=== PATIENT | male | born 1935 | race Caucasian/White ===

== ENCOUNTER 2018-02-28 14:17 | Inpatient (IN) | payer MEDICARE, BC ==
[2018-02-28] MEDS ORDERED: Sodium Chloride 0.9% 10 ML Syringe FLUSH PRN (15:06)
[2018-02-28] MEDS ORDERED: Ketorolac 30 MG/ML SDV IVPUSH ONE (15:08)
[2018-02-28] MEDS ORDERED: Prochlorperazine 10 MG/2 ML SDV IVPUSH ONE (15:08)
[2018-02-28] MEDS ORDERED: diphenhydrAMINE 50 MG/ML SDV IVPUSH ONE (15:08)
[2018-02-28] MEDS: Sodium Chloride 0.9% 1,000 ML IV SCH (15:24)
--- NOTE | 2018-02-28 19:05 | EDM.PDOC ---
ED HPI GENERAL MEDICAL PROBLEM - General Chief Complaint: Headache Stated Complaint: LOW BP/DIZZY Time Seen by Provider: 02/28/18 14:52 Source of Information: Reports: Patient, Family History Limitations: Reports: No Limitations - History of Present Illness INITIAL COMMENTS - FREE TEXT/NARRATIVE: The patient presents with a headache and dizziness. He has a history of headaches but this one is more severe. The pain is in the frontal area. He has never been worked up for the headaches. He has never been told he has migraines He denies numbness or weakness. He also has been dizzy where it is like he is lightheaded with not being off balance or having the room spinning. He has no chest pain, shortness of breath, fever, chills or cough. He has no abdominal pain, nausea or vomiting. He checked his blood pressure at home and it was 108 systolic which is low for him. Onset: Gradual Duration: Day(s): Location: Reports: Head Quality: Reports: Ache Severity: Moderate Improves with: Reports: None Worsens with: Reports: None Associated Symptoms: Reports: Headaches. Denies: Chest Pain, Cough, Fever/ Chills, Nausea/Vomiting, Shortness of Breath Frontal Headache Pain Score (Numeric/FACES): 8 - Related Data Allergies Allergy/AdvReac Type Severity Reaction Status Date / Time No Known Allergies Allergy Verified 07/01/16 13:58 Home Meds: Home Meds Acetaminophen [Tylenol Extra Strength] 1,000 mg PO Q4HR PRN 07/01/16 [History] Aspirin 81 mg PO DAILY 07/01/16 [History] Calcium Carbonate [Calcium] 500 mg PO DAILY 07/01/16 [History] Cholecalciferol (Vitamin D3) [D-2000] 1,000 unit PO DAILY 07/01/16 [History] Docusate Sodium [Colace] 100 mg PO DAILY 07/01/16 [History] Dorzolamide HCl/Timolol Maleat [Dorzolamide-Timolol Eye Drops] 1 drop OP TID [History] Furosemide 1 tab PO DAILY 07/01/16 [History] Labetalol [Normodyne] 300 mg PO BID 07/01/16 [History] Levothyroxine 75 mcg PO ACBREAKFAST 07/01/16 [History] Tamsulosin [Flomax] 0.8 mg PO DAILY 07/01/16 [History] Vitamin B Complex [B Complex] 1 each PO DAILY 07/01/16 [History] traMADol HCl [Tramadol HCl] 1 tab PO Q4H PRN 07/01/16 [History] Albuterol [Ventolin HFA] 1 puff INH Q4H PRN 02/28/18 [History] Dutasteride [Avodart] 0.5 mg PO DAILY 02/28/18 [History] Fluticasone/Vilanterol [Breo Ellipta 100-25 MCG Inhalation Kit] 1 puff IH DAILY 02/28/18 [History] Losartan [Cozaar] 100 mg PO DAILY 02/28/18 [History] Simbrinza Opth. Drops 1 drop EYELF DAILY 02/28/18 [History] Travoprost [Travatan Z] 1 drop EYELF BEDTIME 02/28/18 [History] amLODIPine Besylate [Amlodipine Besylate] 5 mg PO DAILY 02/28/18 [History] Past Medical History HEENT History: Reports: Cataract, Glaucoma, Impaired Vision, Macular Degeneration Cardiovascular History: Reports: Hypertension, Pacemaker, SOB on Exertion Respiratory History: Reports: Sleep Apnea, Other (See Below) Other Respiratory History: "lung problems" without dx. Pt is on inhalers pending pulmonology appt. Genitourinary History: Reports: Prostate Disorder, Retention, Urinary Musculoskeletal History: Reports: Back Pain, Chronic Other Musculoskeletal History: chronic hip pain Endocrine/Metabolic History: Reports: Hypothyroidism - Past Surgical History Musculoskeletal Surgical History: Reports: Hip Replacement, Other (See Below) Social & Family History - Family History Family Medical History: Noncontributory - Tobacco Use Smoking Status *Q: Former Smoker Used Tobacco, but Quit: Yes Month/Year Tobacco Last Used: 1969 - Caffeine Use Caffeine Use: Reports: Coffee - Recreational Drug Use Recreational Drug Use: No ED ROS GENERAL - Review of Systems Review Of Systems: See Below Constitutional: Reports: No Symptoms HEENT: Reports: No Symptoms Respiratory: Reports: No Symptoms Cardiovascular: Reports: Lightheadedness. Denies: Chest Pain Endocrine: Reports: No Symptoms GI/Abdominal: Reports: No Symptoms : Reports: No Symptoms Musculoskeletal: Reports: No Symptoms Skin: Reports: No Symptoms Neurological: Reports: Headache - Physical Exam Exam: See Below Exam Limited By: No Limitations General Appearance: Alert, No Apparent Distress Eye Exam: Bilateral Eye: EOMI, PERRL Ears: Normal External Exam Nose: Normal Inspection Throat/Mouth: Normal Inspection Head Exam: Atraumatic, Normocephalic Neck: Normal Inspection, Supple, Non-Tender Respiratory/Chest: No Respiratory Distress, Lungs Clear, Normal Breath Sounds Cardiovascular: Regular Rate, Rhythm, No Edema, No Murmur GI/Abdominal: Soft, Non-Tender, No Organomegaly, No Mass Rectal (Males) Exam: Heme + Stool Neuro Exam (Abbreviated): Alert, Oriented, No Motor/Sensory Deficits Back Exam: Normal Inspection Extremities: Normal Inspection EKG INTERPRETATION EKG Date: 02/28/18 Time: 15:17 Rhythm: NSR Rate (Beats/Min): 61 [place]: Normal P-Wave: Present QRS: Normal ST-T: Normal QT: Normal EKG Interpretation Comments: LVH Course - Vital Signs Last Recorded V/S: Last Vital Signs Temp 98 F 02/28/18 17:59 Pulse 81 02/28/18 17:59 Resp 18 02/28/18 17:59 BP 124/112 H 02/28/18 17:59 Pulse Ox 98 02/28/18 17:44 Orthostatic Blood Pressure [ 125/52 Standing] Orthostatic Blood Pressure [ 124/57 Sitting] Orthostatic Blood Pressure [ 141/54 Supine] - Orders/Labs/Meds Orders: Active Orders 24 hr Category Date Time Status Cardiac Monitoring [RC] . DIRECTED Care 02/28/18 15:06 Active EKG Documentation Completion [RC] STAT Care 02/28/18 15:07 Active Peripheral IV Care [RC] . DIRECTED Care 02/28/18 15:07 Active Head wo Cont [CT] Stat Exams 02/28/18 15:57 Taken RED BLOOD CELLS LP [BBK] Stat Lab 02/28/18 15:22 Results RETICULOCYTE COUNT [HEME] Stat Lab 02/28/18 17:41 Ordered TYPE AND SCREEN [BBK] Stat Lab 02/28/18 15:22 Results Sodium Chloride 0.9% [Normal Saline] 1,000 ml Med 02/28/18 15:15 Active IV ASDIRECTED Sodium Chloride 0.9% [Saline Flush] Med 02/28/18 15:06 Active 10 ml FLUSH ASDIRECTED PRN ED Antiemetic Medication Reflex [OM.PC] Stat Oth 02/28/18 15:07 Ordered Peripheral IV Insertion Adult [OM.PC] Stat [facility] 02/28/18 15:06 Ordered Transfuse RBC [Transfuse Red Blood Cells] [COMM] Stat [facility] 02/28/18 16:14 Ordered Medication Orders Sodium Chloride (Normal Saline) 1,000 mls @ 125 mls/hr IV ASDIRECTED GAURAV Last Admin: 02/28/18 15:24 Dose: 125 mls/hr Sodium Chloride (Saline Flush) 10 ml FLUSH ASDIRECTED PRN PRN Reason: Keep Vein Open Last Admin: 02/28/18 15:34 Dose: 10 ml Labs: Laboratory Tests 02/28/18 02/28/18 02/28/18 Range/Units 15:22 15:22 15:22 WBC 8.76 (4.23-9.07) K/mm3 RBC 2.66 L (4.63-6.08) M/mm3 Hgb 6.2 L* (13.7-17.5) gm/L Hct 21.1 L (40.1-51.0) % MCV 79.3 (79.0-92.2) fl MCH 23.3 L (25.7-32.2) pg MCHC 29.4 L (32.2-35.5) g/dl RDW Std Deviation 46.9 H (35.1-43.9) fL Plt Count 231 (163-337) K/mm3 MPV 9.2 L (9.4-12.3) fl Neut % (Auto) 81.1 H (34.0-67.9) % Lymph % (Auto) 9.6 L (21.8-53.1) % [place] % (Auto) 7.9 (5.3-12.2) % Eos % (Auto) 1.3 (0.8-7.0) Baso % (Auto) 0.0 L (0.1-1.2) % Neut # (Auto) 7.11 H (1.78-5.38) K/mm3 Lymph # (Auto) 0.84 L (1.32-3.57) K/mm3 [place] # (Auto) 0.69 (0.30-0.82) K/mm3 Eos # (Auto) 0.11 (0.04-0.54) K/mm3 Baso # (Auto) 0.00 L (0.01-0.08) K/mm3 Manual Slide Review Abnormal smear Sodium 140 (136-145) mEq/L Potassium 5.1 (3.5-5.1) mEq/L Chloride 108 H (98-107) mEq/L Carbon Dioxide 23 (21-32) mEq/L Anion Gap 14.1 (5-15) BUN 39 H (7-18) mg/dL Creatinine 2.0 H (0.7-1.3) mg/dL Est Cr Clr Drug Dosing 26.62 mL/min Estimated GFR (MDRD) 32 (>60) mL/min BUN/Creatinine Ratio 19.5 H (14-18) Glucose 113 (83-115) mg/dL Calcium 8.7 (8.5-10.1) mg/dL Total Bilirubin 0.4 (0.2-1.0) mg/dL AST 11 L (15-37) U/L ALT 26 (16-63) U/L Alkaline Phosphatase 62 (46-116) U/L Troponin I 0.018 (0.00-0.056) ng/mL Total Protein 6.4 (6.4-8.2) g/dl Albumin 3.3 L (3.4-5.0) g/dl Globulin 3.1 gm/dL Albumin/Globulin Ratio 1.1 (1-2) Blood Type O POSITIVE Gel Antibody Screen Negative Crossmatch See Detail Meds: Medications Generic Name Dose Route Start Last Admin Trade Name Freq PRN Reason Stop Dose Admin Sodium Chloride 1,000 mls @ 125 mls/hr 02/28/18 15:15 02/28/18 15:24 Normal Saline IV 125 mls/hr ASDIRECTED GAURAV Administration Sodium Chloride 10 ml 02/28/18 15:06 02/28/18 15:34 Saline Flush FLUSH 10 ml ASDIRECTED PRN Administration Keep Vein Open Discontinued Medications Generic Name Dose Route Start Last Admin Trade Name Freq PRN Reason Stop Dose Admin Diphenhydramine HCl 50 mg 02/28/18 15:08 02/28/18 15:25 Benadryl IVPUSH 02/28/18 15:09 50 mg ONETIME ONE Administration Ketorolac Tromethamine 30 mg 02/28/18 15:08 02/28/18 15:31 Toradol IVPUSH 02/28/18 15:09 30 mg ONETIME ONE Administration Prochlorperazine Edisylate 10 mg 02/28/18 15:08 02/28/18 15:29 Compazine IVPUSH 02/28/18 15:09 10 mg ONETIME ONE Administration - Re-Assessments/Exams Free Text/Narrative Re-Assessment/Exam: 02/28/18 19:05 I ordered an IV NS at 125mL/hr, compazine 10mg IV, toradol 30mg IV, benadryl IV. I also ordered a CT of his head, EKG, and labs. His EKG shows a NSR with no acute changes. His CT shows nothing acute. 02/28/18 19:07 His Hgb was very low at 6.2. The last time he was here in 2016 his Hgb was 12. He denies any blood stool or dark tarry stool. I did a rectal exam and the guiac was positive. I ordered 2 units of PRBCs. His creatinine is 2. His troponin is negative. I feel he needs to be admitted. I called Dr Boland and she agreed to the admission. Departure - Departure Time of Disposition: 19:10 Disposition: Refer to Observation Condition: Good Clinical Impression: Renal insufficiency, Lightheaded Headache Qualifiers: Headache type: unspecified Headache chronicity pattern: chronic headache Intractability: not intractable Qualified Code(s): R51 - Headache GI bleed Qualifiers: GI bleed type/associated pathology: unspecified gastrointestinal hemorrhage type Qualified Code(s): K92.2 - Gastrointestinal hemorrhage, unspecified Anemia Qualifiers: Anemia type: other cause Other causes of anemia: other cause, not classified Qualified Code(s): D64.89 - Other specified anemias - Discharge Information Referrals: Theodore Lopez MD [Primary Care Provider] - - My Orders Last 24 Hours: My Active Orders 02/28/18 15:06 Cardiac Monitoring [RC] . DIRECTED Sodium Chloride 0.9% [Saline Flush] 10 ml FLUSH ASDIRECTED PRN Peripheral IV Insertion Adult [OM.PC] Stat 02/28/18 15:07 EKG Documentation Completion [RC] STAT Peripheral IV Care [RC] . DIRECTED ED Antiemetic Medication Reflex [OM.PC] Stat 02/28/18 15:15 Sodium Chloride 0.9% [Normal Saline] 1,000 ml IV ASDIRECTED 02/28/18 15:22 RED BLOOD CELLS LP [BBK] Stat TYPE AND SCREEN [BBK] Stat 02/28/18 15:57 Head wo Cont [CT] Stat 02/28/18 16:14 Transfuse RBC [Transfuse Red Blood Cells] [COMM] Stat 02/28/18 17:41 RETICULOCYTE COUNT [HEME] Stat - Assessment/Plan Last 24 Hours: My Active Orders 02/28/18 15:06 Cardiac Monitoring [RC] . DIRECTED Sodium Chloride 0.9% [Saline Flush] 10 ml FLUSH ASDIRECTED PRN Peripheral IV Insertion Adult [OM.PC] Stat 02/28/18 15:07 EKG Documentation Completion [RC] STAT Peripheral IV Care [RC] . DIRECTED ED Antiemetic Medication Reflex [OM.PC] Stat 02/28/18 15:15 Sodium Chloride 0.9% [Normal Saline] 1,000 ml IV ASDIRECTED 02/28/18 15:22 RED BLOOD CELLS LP [BBK] Stat TYPE AND SCREEN [BBK] Stat 02/28/18 15:57 Head wo Cont [CT] Stat 02/28/18 16:14 Transfuse RBC [Transfuse Red Blood Cells] [COMM] Stat 02/28/18 17:41 RETICULOCYTE COUNT [HEME] Stat
--- NOTE | 2018-02-28 20:23 | PCM.HP ---
H&P History of Present Illness - General Date of Service: 02/28/18 Admit Problem/Dx: Admission Diagnosis/Problem Admission Diagnosis/Problem Anemia Source of Information: Family, Provider History Limitations: Reports: No Limitations - History of Present Illness Initial Comments - Free Text/Narative: 82 year old male with PMH of hypertension reported a complaint of a headache. He was treated with Toradol, Benadryl, and Compazine for his headache. A Ct of the head was performed and was unremarkable. In the process of evaluation for associated dizziness, the patient was found to have a Hgb of 6.2. He has had at least 2 colonoscopies in the past for reportedly colon cancer screening. The patient's sister of colon cancer. A comparison of available lab work from 2016, documented a baseline Hgb 12.0. He has been typed and screened, and will start his first unit of PRBCs ordered in the ED. He will be admitted to obs with telemetry. The patient denied unsteady gait, presyncopal/syncopal episodes, CP but complains of SOB. he is expected to have a pulmonary consult in 6-8 weeks; the family stated that he has had PFTs in the past. The results are unknown at the time of admission. Onset of Symptoms: Reports: Gradual, Unknown/Unsure Duration of Symptoms: Reports: Week(s):, Getting Worse Location: Reports: Head, Generalized Severity: Moderate Improves with: Reports: Other (blood transfusion) Worsens with: Reports: None Associated Symptoms: Reports: Headaches, Weakness Frontal Headache Pain Score (Numeric/FACES): 8 - Related Data Allergies/Adverse Reactions: Allergies Allergy/AdvReac Type Severity Reaction Status Date / Time No Known Allergies Allergy Verified 02/28/18 22:30 Home Medications: Home Meds Acetaminophen [Tylenol Extra Strength] 1,000 mg PO Q4HR PRN 07/01/16 [History] Aspirin 81 mg PO DAILY 07/01/16 [History] Calcium Carbonate [Calcium] 500 mg PO DAILY 07/01/16 [History] Cholecalciferol (Vitamin D3) [D3-2000] 1,000 unit PO DAILY 07/01/16 [History] Dorzolamide HCl/Timolol Maleat [Dorzolamide-Timolol Eye Drops] 1 drop OP QAM [History] Furosemide 20 tab PO DAILY 07/01/16 [History] Labetalol [Normodyne] 300 mg PO BID 07/01/16 [History] Levothyroxine 75 mcg PO ACBREAKFAST 07/01/16 [History] Tamsulosin [Flomax] 0.8 mg PO DAILY 07/01/16 [History] Vitamin B Complex [B Complex] 1 tab PO DAILY 07/01/16 [History] traMADol HCl [Tramadol HCl] 50 mg PO Q4H PRN 07/01/16 [History] Albuterol [Ventolin HFA] 1 puff INH Q4H PRN 02/28/18 [History] Dutasteride [Avodart] 0.5 mg PO DAILY 02/28/18 [History] Fluticasone/Vilanterol [Breo Ellipta 100-25 MCG Inhalation Kit] 1 puff IH DAILY 02/28/18 [History] Losartan [Cozaar] 100 mg PO DAILY 02/28/18 [History] Simbrinza Opth. Drops 1 drop EYELF DAILY 02/28/18 [History] Travoprost [Travatan Z] 1 drop EYELF BEDTIME 02/28/18 [History] amLODIPine Besylate [Amlodipine Besylate] 5 mg PO DAILY 02/28/18 [History] Past Medical History HEENT History: Reports: Cataract, Glaucoma, Impaired Vision, Macular Degeneration Cardiovascular History: Reports: Hypertension, Pacemaker, SOB on Exertion Respiratory History: Reports: Sleep Apnea, Other (See Below) Other Respiratory History: "lung problems" without dx. Pt is on inhalers pending pulmonology appt. Genitourinary History: Reports: Prostate Disorder, Retention, Urinary Musculoskeletal History: Reports: Back Pain, Chronic Other Musculoskeletal History: chronic hip pain Endocrine/Metabolic History: Reports: Hypothyroidism - Past Surgical History Musculoskeletal Surgical History: Reports: Hip Replacement, Other (See Below) Social & Family History - Family History Family Medical History: Noncontributory - Tobacco Use Smoking Status *Q: Former Smoker Used Tobacco, but Quit: Yes Month/Year Tobacco Last Used: 1969 - Caffeine Use Caffeine Use: Reports: Coffee - Recreational Drug Use Recreational Drug Use: No H&P Review of Systems - Review of Systems: Review Of Systems: See Below General: Reports: Weakness HEENT: Reports: Headaches Pulmonary: Reports: Shortness of Breath Cardiovascular: Reports: Lightheadedness Gastrointestinal: Reports: No Symptoms Genitourinary: Reports: No Symptoms Musculoskeletal: Reports: No Symptoms Skin: Reports: No Symptoms Psychiatric: Reports: No Symptoms Neurological: Reports: No Symptoms Hematologic/Lymphatic: Reports: No Symptoms Immunologic: Reports: No Symptoms Exam - Exam Exam: See Below - Vital Signs Vital Signs: Last Vital Signs Temp 36.6 C 02/28/18 17:59 Pulse 81 02/28/18 17:59 Resp 18 02/28/18 17:59 BP 124/112 H 02/28/18 17:59 Pulse Ox 98 02/28/18 17:44 Orthostatic Blood Pressure [ 125/52 Standing] Orthostatic Blood Pressure [ 124/57 Sitting] Orthostatic Blood Pressure [ 141/54 Supine] Weight: 123.559 kg - Exam Quality Assessment: Supplemental Oxygen, DVT Prophylaxis General: Alert, Oriented, Cooperative HEENT: Conjunctiva Clear, Nares Patent, Normal Nasal Septum, Pupils Equal, Pupils Reactive, PERRLA Neck: Trachea Midline Lungs: Normal Respiratory Effort Cardiovascular: Regular Rate, Regular Rhythm GI/Abdominal Exam: Normal Bowel Sounds, Soft, Non-Tender, No Organomegaly, No Distention (Male) Exam: Deferred Rectal (Males) Exam: Deferred Extremities: Normal Inspection, Non-Tender, Slow Capillary Refill Skin: Warm Neurological: Cranial Nerves Intact Neuro Extensive - Mental Status: Alert, Oriented x3 - Patient Data Lab Results Last 24 hrs: Laboratory Results - last 24 hr 02/28/18 02/28/18 02/28/18 Range/Units 15:22 15:22 15:22 WBC 8.76 (4.23-9.07) K/mm3 RBC 2.66 L (4.63-6.08) M/mm3 Hgb 6.2 L* (13.7-17.5) gm/L Hct 21.1 L (40.1-51.0) % MCV 79.3 (79.0-92.2) fl MCH 23.3 L (25.7-32.2) pg MCHC 29.4 L (32.2-35.5) g/dl RDW Std Deviation 46.9 H (35.1-43.9) fL Plt Count 231 (163-337) K/mm3 MPV 9.2 L (9.4-12.3) fl Neut % (Auto) 81.1 H (34.0-67.9) % Lymph % (Auto) 9.6 L (21.8-53.1) % [place] % (Auto) 7.9 (5.3-12.2) % Eos % (Auto) 1.3 (0.8-7.0) Baso % (Auto) 0.0 L (0.1-1.2) % Neut # (Auto) 7.11 H (1.78-5.38) K/mm3 Lymph # (Auto) 0.84 L (1.32-3.57) K/mm3 [place] # (Auto) 0.69 (0.30-0.82) K/mm3 Eos # (Auto) 0.11 (0.04-0.54) K/mm3 Baso # (Auto) 0.00 L (0.01-0.08) K/mm3 Manual Slide Review Abnormal smear Sodium 140 (136-145) mEq/L Potassium 5.1 (3.5-5.1) mEq/L Chloride 108 H (98-107) mEq/L Carbon Dioxide 23 (21-32) mEq/L Anion Gap 14.1 (5-15) BUN 39 H (7-18) mg/dL Creatinine 2.0 H (0.7-1.3) mg/dL Est Cr Clr Drug Dosing 26.62 mL/min Estimated GFR (MDRD) 32 (>60) mL/min BUN/Creatinine Ratio 19.5 H (14-18) Glucose 113 (83-115) mg/dL Calcium 8.7 (8.5-10.1) mg/dL Total Bilirubin 0.4 (0.2-1.0) mg/dL AST 11 L (15-37) U/L ALT 26 (16-63) U/L Alkaline Phosphatase 62 (46-116) U/L Troponin I 0.018 (0.00-0.056) ng/mL Total Protein 6.4 (6.4-8.2) g/dl Albumin 3.3 L (3.4-5.0) g/dl Globulin 3.1 gm/dL Albumin/Globulin Ratio 1.1 (1-2) Blood Type O POSITIVE Gel Antibody Screen Negative Crossmatch See Detail Result Diagrams: 03/02/18 05:32 03/02/18 05:32 - Problem List (1) Anemia SNOMED Code(s): 160483276 ICD Code: D64.9 - ANEMIA, UNSPECIFIED Status: Acute Qualifiers: Anemia type: other cause Other causes of anemia: other cause, not classified Qualified Code(s): D64.89 - Other specified anemias (2) GI bleed SNOMED Code(s): 93902017 ICD Code: K92.2 - GASTROINTESTINAL HEMORRHAGE, UNSPECIFIED Status: Acute Qualifiers: GI bleed type/associated pathology: unspecified gastrointestinal hemorrhage type Qualified Code(s): K92.2 - Gastrointestinal hemorrhage, unspecified (3) Headache SNOMED Code(s): 11179792 ICD Code: R51 - HEADACHE Status: Acute Qualifiers: Headache type: unspecified Headache chronicity pattern: chronic headache Intractability: not intractable Qualified Code(s): R51 - Headache (4) Hypertension SNOMED Code(s): 75143900 ICD Code: I10 - ESSENTIAL (PRIMARY) HYPERTENSION Status: Acute Qualifiers: Hypertension type: unspecified secondary hypertension Qualified Code(s): I15.9 - Secondary hypertension, unspecified; I15 - Secondary hypertension (5) Lightheaded SNOMED Code(s): 593137005 ICD Code: R42 - DIZZINESS AND GIDDINESS Status: Acute (6) Renal insufficiency SNOMED Code(s): 391511251, 736557478 ICD Code: N28.9 - DISORDER OF KIDNEY AND URETER, UNSPECIFIED Status: Acute (7) Shortness of breath SNOMED Code(s): 867009863 ICD Code: R06.02 - SHORTNESS OF BREATH Status: Acute (8) Glaucoma SNOMED Code(s): 36140555 ICD Code: H40.9 - UNSPECIFIED GLAUCOMA Status: Acute (9) Hypothyroidism SNOMED Code(s): 70074046 ICD Code: E03.9 - HYPOTHYROIDISM, UNSPECIFIED Status: Acute Problem List Initiated/Reviewed/Updated: Yes Orders Last 24hrs: Active Orders 24 hr Category Date Time Status Admission Status [Patient Status] [ADT] Routine ADT 02/28/18 19:19 Active Cardiac Monitoring [RC] . DIRECTED Care 02/28/18 19:19 Active EKG Documentation Completion [RC] STAT Care 02/28/18 15:07 Active Head wo Cont [CT] Stat Exams 02/28/18 15:57 Taken RED BLOOD CELLS LP [BBK] Stat Lab 02/28/18 15:22 Results RETICULOCYTE COUNT [HEME] Stat Lab 02/28/18 17:41 Ordered TYPE AND SCREEN [BBK] Stat Lab 02/28/18 15:22 Results Sodium Chloride 0.9% [Normal Saline] 1,000 ml Med 02/28/18 15:15 Active IV ASDIRECTED Sodium Chloride 0.9% [Saline Flush] Med 02/28/18 15:06 Active 10 ml FLUSH ASDIRECTED PRN ED Antiemetic Medication Reflex [OM.PC] Stat Ot 02/28/18 15:07 Ordered Peripheral IV Insertion Adult [OM.PC] Stat Ot 02/28/18 15:06 Ordered Transfuse RBC [Transfuse Red Blood Cells] [COMM] Stat Ot 02/28/18 16:14 Ordered Medication Orders Sodium Chloride (Normal Saline) 1,000 mls @ 125 mls/hr IV ASDIRECTED GAURAV Last Admin: 02/28/18 15:24 Dose: 125 mls/hr Sodium Chloride (Saline Flush) 10 ml FLUSH ASDIRECTED PRN PRN Reason: Keep Vein Open Last Admin: 02/28/18 15:34 Dose: 10 ml Assessment/Plan Comment:: Impression: GOODE--resolved; negative CT of head Lightheaded with anemia, PRBCs ordered; guiac positive stool denies change in stool; negative orthostatics Family Hx of Colon Ca, remote history of colonoscopy HTN HLD/Hypothyroid S/P PPM-->query SSN/A Fib Hx of Glaucoma Plan: Obs with telemetry 2 units PRBCs, diurese Home meds/Correct electrolytes; daily labs Clear Liquid diet advance as tolerated Gen Surg as needed, anticipate colonsocopy as an outpatient--discussed with family GI/DVT prophylaxis
[2018-02-28] MEDS ORDERED: Furosemide 40 MG/4 ML VIAL IVPUSH ONE (20:29)
[2018-02-28] MEDS ORDERED: Acetaminophen 325 MG Tab PO PRN (20:36)
[2018-02-28] MEDS: Famotidine 20 MG/2 ML SDV IVPUSH SCH (20:48)
[2018-02-28] MEDS ORDERED: DORZOLAMIDE HCL OP SCH (21:00)
[2018-02-28] MEDS ORDERED: TIMOLOL MALEAT OP SCH (21:00)
[2018-02-28] MEDS: LABETALOL 300 MG PO SCH (22:23)
[2018-02-28] MEDS ORDERED: Pneumococcal Polyvalent-23 Vaccine 0.5 ML SDV IM ONE (23:44)
[2018-03-01] MEDS: Famotidine 20 MG/2 ML SDV IVPUSH SCH ×2 (08:21→20:07)
[2018-03-01] MEDS: Cholecalciferol (Vitamin D3) 1,000 Unit Tab PO SCH (08:21)
[2018-03-01] MEDS: TIMOLOL MALEAT OP SCH (08:24)
[2018-03-01] MEDS: DORZOLAMIDE HCL OP SCH (08:24)
[2018-03-01] MEDS: LABETALOL 300 MG PO SCH ×2 (08:27→20:07)
[2018-03-01] MEDS: Sodium Chloride 0.9% 1,000 ML IV SCH (08:45)
--- NOTE | 2018-03-01 09:55 | PCM.PN ---
- General Info Date of Service: 03/01/18 Subjective Update: No eileen blood during the night or transfusion reaction, however was confused during the evening. Discussed with patient and the additional benefit of more blood, will give an additional 2 units of PRBCs followed by Jude; patient and are agreeable. Again reinforced the need to get evaluated as an outpatient for GI bleed/colon CA screen. Functional Status: Reports: Tolerating Diet, Ambulating, Urinating (refused to use urinal) - Review of Systems General: Reports: Weakness HEENT: Reports: No Symptoms Pulmonary: Reports: Shortness of Breath (Pulse ox-->99%) Cardiovascular: Reports: Lightheadedness Gastrointestinal: Reports: No Symptoms Genitourinary: Reports: No Symptoms Musculoskeletal: Reports: No Symptoms Skin: Reports: No Symptoms Neurological: Reports: No Symptoms Psychiatric: Reports: No Symptoms - Patient Data Vitals - Most Recent: Last Vital Signs Temp 36.4 C 03/01/18 08:14 Pulse 66 03/01/18 08:14 Resp 20 03/01/18 08:14 BP 131/65 03/01/18 08:14 Pulse Ox 98 03/01/18 08:14 Orthostatic Blood Pressure [ 125/52 Standing] Orthostatic Blood Pressure [ 124/57 Sitting] Orthostatic Blood Pressure [ 141/54 Supine] Weight - Most Recent: 76.43 kg I&O - Last 24 Hours: Intake & Output 02/28/18 03/01/18 03/01/18 22:59 06:59 14:59 Intake Total 360 1447 Output Total 1425 Balance 360 22 Lab Results Last 24 Hours: Laboratory Results - last 24 hr 02/28/18 02/28/18 02/28/18 Range/Units 15:22 15:22 15:22 WBC 8.76 (4.23-9.07) K/mm3 RBC 2.66 L (4.63-6.08) M/mm3 Hgb 6.2 L* (13.7-17.5) gm/L Hct 21.1 L (40.1-51.0) % MCV 79.3 (79.0-92.2) fl MCH 23.3 L (25.7-32.2) pg MCHC 29.4 L (32.2-35.5) g/dl RDW Std Deviation 46.9 H (35.1-43.9) fL Plt Count 231 (163-337) K/mm3 MPV 9.2 L (9.4-12.3) fl Neut % (Auto) 81.1 H (34.0-67.9) % Lymph % (Auto) 9.6 L (21.8-53.1) % [place] % (Auto) 7.9 (5.3-12.2) % Eos % (Auto) 1.3 (0.8-7.0) Baso % (Auto) 0.0 L (0.1-1.2) % Neut # (Auto) 7.11 H (1.78-5.38) K/mm3 Lymph # (Auto) 0.84 L (1.32-3.57) K/mm3 [place] # (Auto) 0.69 (0.30-0.82) K/mm3 Eos # (Auto) 0.11 (0.04-0.54) K/mm3 Baso # (Auto) 0.00 L (0.01-0.08) K/mm3 Manual Slide Review Abnormal smear Percent Retic (0.51-1.81) % Sodium 140 (136-145) mEq/L Potassium 5.1 (3.5-5.1) mEq/L Chloride 108 H (98-107) mEq/L Carbon Dioxide 23 (21-32) mEq/L Anion Gap 14.1 (5-15) BUN 39 H (7-18) mg/dL Creatinine 2.0 H (0.7-1.3) mg/dL Est Cr Clr Drug Dosing 26.62 mL/min Estimated GFR (MDRD) 32 (>60) mL/min BUN/Creatinine Ratio 19.5 H (14-18) Glucose 113 (83-115) mg/dL Calcium 8.7 (8.5-10.1) mg/dL Magnesium (1.8-2.4) mg/dl Total Bilirubin 0.4 (0.2-1.0) mg/dL AST 11 L (15-37) U/L ALT 26 (16-63) U/L Alkaline Phosphatase 62 (46-116) U/L Troponin I 0.018 (0.00-0.056) ng/mL Total Protein 6.4 (6.4-8.2) g/dl Albumin 3.3 L (3.4-5.0) g/dl Globulin 3.1 gm/dL Albumin/Globulin Ratio 1.1 (1-2) Blood Type O POSITIVE Gel Antibody Screen Negative Crossmatch See Detail 02/28/18 03/01/18 03/01/18 Range/Units 21:27 05:09 05:09 WBC (4.23-9.07) K/mm3 RBC (4.63-6.08) M/mm3 Hgb 8.5 L (13.7-17.5) gm/L Hct (40.1-51.0) % MCV (79.0-92.2) fl MCH (25.7-32.2) pg MCHC (32.2-35.5) g/dl RDW Std Deviation (35.1-43.9) fL Plt Count (163-337) K/mm3 MPV (9.4-12.3) fl Neut % (Auto) (34.0-67.9) % Lymph % (Auto) (21.8-53.1) % [place] % (Auto) (5.3-12.2) % Eos % (Auto) (0.8-7.0) Baso % (Auto) (0.1-1.2) % Neut # (Auto) (1.78-5.38) K/mm3 Lymph # (Auto) (1.32-3.57) K/mm3 [place] # (Auto) (0.30-0.82) K/mm3 Eos # (Auto) (0.04-0.54) K/mm3 Baso # (Auto) (0.01-0.08) K/mm3 Manual Slide Review Percent Retic 1.84 H (0.51-1.81) % Sodium 140 (136-145) mEq/L Potassium 4.7 (3.5-5.1) mEq/L Chloride 108 H (98-107) mEq/L Carbon Dioxide 22 (21-32) mEq/L Anion Gap 14.7 (5-15) BUN 36 H (7-18) mg/dL Creatinine 2.0 H (0.7-1.3) mg/dL Est Cr Clr Drug Dosing 26.62 mL/min Estimated GFR (MDRD) 32 (>60) mL/min BUN/Creatinine Ratio 18.0 (14-18) Glucose 117 H (83-115) mg/dL Calcium 8.4 L (8.5-10.1) mg/dL Magnesium 2.4 (1.8-2.4) mg/dl Total Bilirubin (0.2-1.0) mg/dL AST (15-37) U/L ALT (16-63) U/L Alkaline Phosphatase (46-116) U/L Troponin I (0.00-0.056) ng/mL Total Protein (6.4-8.2) g/dl Albumin (3.4-5.0) g/dl Globulin gm/dL Albumin/Globulin Ratio (1-2) Blood Type Gel Antibody Screen Crossmatch Med Orders - Current: Current Medications Acetaminophen (Tylenol) 975 mg PO Q4H PRN PRN Reason: Pain Cholecalciferol (Vitamin D3) 1,000 units PO DAILY [facility] Last Admin: 03/01/18 08:21 Dose: 1,000 units Famotidine (Pepcid) 20 mg IVPUSH BID [facility] Last Admin: 03/01/18 08:21 Dose: 20 mg Furosemide (Lasix) 40 mg IVPUSH NOW ONE Stop: 03/01/18 13:01 Sodium Chloride (Normal Saline) 1,000 mls @ 125 mls/hr IV ASDIRECTED [facility] Last Admin: 03/01/18 08:45 Dose: 125 mls/hr (Albuterol 1 Puff) (*Own Med) 1 puff INH Q4H PRN PRN Reason: Shortness of Breath (Fluticasone/Vilanterol 1 Puff) *Own Med 1 puff IH DAILY [facility] (Labetalol [ Normodyne] 300 Mg) *Own Med 300 mg PO BID [facility] Last Admin: 03/01/18 08:27 Dose: Not Given (Levothyroxine [ Levothyroxine] 75 Mcg)Own Med 75 mcg PO ACBREAKFAST [facility] Last Admin: 03/01/18 06:49 Dose: 75 mcg (Losartan [Cozaar] (100 Mg)Own Med) 100 mg PO DAILY [facility] Last Admin: 03/01/18 08:26 Dose: Not Given (Tramadol Hcl [ Tramadol Hcl] 1 Tab) Own Med 1 tab PO Q4H PRN PRN Reason: Pain (Travoprost [ Travatan Z] 1 Drop)* Own Med 1 drop EYELF BEDTIME [facility] Last Admin: 02/28/18 22:23 Dose: 1 drop (Amlodipine Besylate [Amlodipine Besylate] 5 Mg) Own Med 5 mg PO BEDTIME [facility] Dorzolamide Hcl/Timolol Maleat [ Dorzolamide-Timolol Eye Own Med 1 drop OP DAILY [facility] Last Admin: 03/01/18 08:24 Dose: 1 drop (Dutasteride 0.5 Mg) (Own Med) 0.5 mg PO BEDTIME [facility] (Tamsulosin [Flomax] 0.4 Mg)Own Med * 0.8 mg PO BEDTIME [facility] Simbrinza Opth. (Drops) 0 each EYELF DAILY [facility] Sodium Chloride (Saline Flush) 10 ml FLUSH ASDIRECTED PRN PRN Reason: Keep Vein Open Last Admin: 02/28/18 15:34 Dose: 10 ml Discontinued Medications Diphenhydramine HCl (Benadryl) 50 mg IVPUSH ONETIME ONE Stop: 02/28/18 15:09 Last Admin: 02/28/18 15:25 Dose: 50 mg Furosemide (Lasix) 40 mg IVPUSH NOW ONE Stop: 02/28/18 20:30 Last Admin: 02/28/18 20:48 Dose: 40 mg Ketorolac Tromethamine (Toradol) 30 mg IVPUSH ONETIME ONE Stop: 02/28/18 15:09 Last Admin: 02/28/18 15:31 Dose: 30 mg (Amlodipine Besylate [Amlodipine Besylate] 5 Mg) Own Med 5 mg PO DAILY [facility] Dorzolamide Hcl/Timolol Maleat [ Dorzolamide-Timolol Eye Own Med 1 drop OP TID [facility] Last Admin: 02/28/18 22:24 Dose: Not Given (Dutasteride 0.5 Mg) (Own Med) 0.5 mg PO DAILY [facility] (Tamsulosin [Flomax] 0.4 Mg)Own Med * 0.8 mg PO DAILY [facility] Pneumococcal Polyvalent Vaccine (Pneumovax 23) 0.5 ml IM .ONCE ONE Stop: 02/28/18 23:45 Prochlorperazine Edisylate (Compazine) 10 mg IVPUSH ONETIME ONE Stop: 02/28/18 15:09 Last Admin: 02/28/18 15:29 Dose: 10 mg - Exam Quality Assessment: DVT Prophylaxis General: Alert, Oriented, Cooperative, No Acute Distress HEENT: Pupils Equal, Pupils Reactive, EOMI Neck: Trachea Midline, No JVD Lungs: Normal Respiratory Effort Cardiovascular: Regular Rate, Regular Rhythm GI/Abdominal Exam: Normal Bowel Sounds, Soft, Non-Tender, No Organomegaly, No Distention (Male) Exam: Deferred Back Exam: Normal Inspection Extremities: Normal Inspection, Non-Tender, Normal Capillary Refill Neurological: No New Focal Deficit Psy/Mental Status: Alert, Normal Affect, Normal Mood - Problem List Review Problem List Initiated/Reviewed/Updated: Yes - My Orders Last 24 Hours: My Active Orders 02/28/18 20:24 Albuterol 1 puff INH Q4H PRN traMADol HCl [Tramadol HCl] 1 tab PO Q4H PRN 02/28/18 20:27 Activity as Tolerated [RC] .Routine 02/28/18 20:31 Code Status [Resuscitation Status] Routine 02/28/18 20:36 Acetaminophen [Tylenol] 975 mg PO Q4H PRN 02/28/18 21:00 Famotidine [Pepcid] 20 mg IVPUSH BID Labetalol [Normodyne] 300 mg PO BID Travoprost [Travatan Z] 1 drop EYELF BEDTIME 02/28/18 Dinner Full Liquid Diet [DIET] 03/01/18 01:42 Patient Status [ADT] Routine 03/01/18 06:00 Levothyroxine [Levothyroxine] 75 mcg PO ACBREAKFAST 03/01/18 09:00 Cholecalciferol (Vitamin D3) [Vitamin D3] 1,000 units PO DAILY Dorzolamide Hcl/Timolol Maleat [Dorzolamide-Timolol Eye Drops] 1 drop OP DAILY Fluticasone/Vilanterol 1 puff IH DAILY Losartan [Cozaar] 100 mg PO DAILY Patient's Own Medication [Ptom] 0 each EYELF DAILY 03/01/18 13:00 Furosemide [Lasix] 40 mg IVPUSH NOW ONE 03/01/18 21:00 Amlodipine Besylate [Amlodipine Besylate] 5 mg PO BEDTIME Dutasteride 0.5 mg PO BEDTIME Tamsulosin [Flomax] 0.8 mg PO BEDTIME - Plan Plan:: Impression: AMS--slept poorly, confusion--disoriented w/ change of environment GOODE--resolved; negative CT of head Lightheaded with anemia, PRBCs ordered; guiac positive stool denies change in stool; negative orthostatics Family Hx of Colon Ca, remote history of colonoscopy HTN HLD/Hypothyroid S/P PPM-->query SSN/A Fib Hx of Glaucoma Plan: Obs with telemetry 2 units PRBCs, diurese Home meds/Correct electrolytes; daily labs Clear Liquid diet advance as tolerated Gen Surg as needed, anticipate colonsocopy as an outpatient--discussed with family GI/DVT prophylaxis
[2018-03-01] MEDS: SIMBRINZA OPTH EYELF SCH (10:31)
[2018-03-01] MEDS: Sodium Chloride 0.9% 250 ML IV SCH ×2 (12:00→14:30)
[2018-03-01] MEDS ORDERED: Furosemide 40 MG/4 ML VIAL IVPUSH ONE (13:00)
[2018-03-01] MEDS ORDERED: diphenhydrAMINE 50 MG/ML SDV IVPUSH ONE (20:34)
[2018-03-01] MEDS ORDERED: Haloperidol Lactate 5 MG/ML SDV IVPUSH ONE (20:45)
[2018-03-01] MEDS ORDERED: LORazepam 2 MG/ML SDV IVPUSH PRN (20:45)
[2018-03-01] MEDS ORDERED: Haloperidol Lactate 5 MG/ML SDV ONE (23:47)
[2018-03-02] MEDS: Famotidine 20 MG/2 ML SDV IVPUSH SCH (08:31)
[2018-03-02] MEDS: Cholecalciferol (Vitamin D3) 1,000 Unit Tab PO SCH (08:31)
[2018-03-02] MEDS: SIMBRINZA OPTH EYELF SCH (08:33)
[2018-03-02] MEDS: LABETALOL 300 MG PO SCH (08:34)
--- NOTE | 2018-03-02 08:37 | CT ---
Head CT Technique: Multiple axial sections through the brain were obtained. Intravenous contrast was not utilized. Comparison: Prior head CT study of 12/13/14. Findings: Ventricles along with basal cisterns and sulci over the convexities are mildly prominent. Minimal diminished density is noted within the periventricular white matter which is compatible with small vessel ischemic demyelination change. 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 No other abnormal parenchymal densities are seen. No evidence of intracranial hemorrhage. No midline shift or mass effect is seen. No discrete calvarial abnormality is noted on bone window settings. Minimal mucosal thickening is seen within the sphenoid and left maxillary sinus as well as inferior left mastoid sinus which is felt to be incidental. Metallic density is projected within the anterior globe. Impression: 1. Senescent change as noted above. 2. Metallic density projecting within the anterior left globe. Please correlate. 3. No acute intracranial abnormality is appreciated. Diagnostic code #3 Agree with preliminary report issued by [facility] ([facility] preliminary report dictated on 02/28/18, 06:50 PM Central Time)
[2018-03-02] MEDS: DORZOLAMIDE HCL OP SCH (08:40)
[2018-03-02] MEDS: TIMOLOL MALEAT OP SCH (08:40)
[2018-03-02] MEDS ORDERED: Enoxaparin 30 MG/0.3 ML Syringe SUBCUT SCH ×2 (10:00→11:15)
[2018-03-02] MEDS ORDERED: Enoxaparin 40 MG/0.4 ML Syringe SUBCUT SCH (10:45)
--- NOTE | 2018-03-02 11:13 | CR ---
Chest: 2 views of the chest were obtained. Comparison: Prior chest x-ray of 07/01/16. Heart is mildly enlarged. Large hiatal hernia is noted. Slightly tortuous thoracic aorta is seen. Mild widening of the upper mediastinum is seen which is stable and most likely due to tortuous great vessels. Parenchymal density is seen off the left hilum which appears stable from prior exam most likely due to vascular confluence. No acute parenchymal densities are seen. Pacemaker is noted. Previous lumbar spine surgery is noted. Degenerative change is noted within the thoracic spine. Elevated right hemidiaphragm is seen which is a stable finding. Impression: 1. Multiple findings as noted above. Nothing acute is seen on 2 view chest x-ray. Diagnostic code #2
[2018-03-02] MEDS ORDERED: traMADol 50 MG Tab PO PRN (11:26)
[2018-03-02] MEDS ORDERED: Albuterol 6.7 GM Inhaler INH PRN (11:27)
[2018-03-02 14:06] VITALS: BP 146/66
--- NOTE | 2018-03-02 14:26 | PCM.DCSUM1 ---
Discharge Summary - Hospital Course Free Text/Narrative:: 82 year old male with PMH of hypertension reported a complaint of a headache. He was treated with Toradol, Benadryl, and Compazine for his headache. A Ct of the head was performed and was unremarkable. In the process of evaluation for associated dizziness, the patient was found to have a Hgb of 6.2. He has had at least 2 colonoscopies in the past for reportedly colon cancer screening. The patient's sister of colon cancer. A comparison of available lab work from 2016, documented a baseline Hgb 12.0. He has been typed and screened, and will start his first unit of PRBCs ordered in the ED. He will be admitted to obs with telemetry. The patient denied unsteady gait, presyncopal/syncopal episodes, CP but complains of SOB. he is expected to have a pulmonary consult in 6-8 weeks; the family stated that he has had PFTs in the past. The results are unknown at the time of admission. On the second night of the patient's observation stay, he received an additional 2 units of PRBCs, it was an uneventful transfusion. However he was profoundly confused, pulling out his IV site, extremely restless and agitated requiring a sitter. An infectious work up was performed UA/CXR, the brief work up was negative. During the day, the patient was oriented times three, he was subsequently DC to home. Follow up with Dr Lopez, lab work was provided. The patient will need an assessment for his GI bleed which will be scheduled as an OP. - Discharge Data Discharge Date: 03/02/18 Discharge Disposition: Home, Self-Care 01 Condition: Good - Patient Summary/Data Recommended Follow-up Testing/Procedures: Colonoscopy re: GI bleed, CA screen. Hospital Course: See above, complicated by gross confusion after . - Patient Instructions Diet: Heart Healthy Diet Activity: As Tolerated Driving: Do Not Drive Showering/Bathing: May Shower Notify Provider of: Fever, Increased Pain, Nausea and/or Vomiting - Discharge Plan Home Medications: Home Meds Acetaminophen [Tylenol Extra Strength] 1,000 mg PO Q4HR PRN 07/01/16 [History] Aspirin 81 mg PO DAILY 07/01/16 [History] Calcium Carbonate [Calcium] 500 mg PO DAILY 07/01/16 [History] Cholecalciferol (Vitamin D3) [D3-2000] 1,000 unit PO DAILY 07/01/16 [History] Dorzolamide HCl/Timolol Maleat [Dorzolamide-Timolol Eye Drops] 1 drop OP QAM [History] Furosemide 20 tab PO DAILY 07/01/16 [History] Labetalol [Normodyne] 300 mg PO BID 07/01/16 [History] Levothyroxine 75 mcg PO ACBREAKFAST 07/01/16 [History] Tamsulosin [Flomax] 0.8 mg PO DAILY 07/01/16 [History] Vitamin B Complex [B Complex] 1 tab PO DAILY 07/01/16 [History] traMADol HCl [Tramadol HCl] 50 mg PO Q4H PRN 07/01/16 [History] Albuterol [Ventolin HFA] 1 puff INH Q4H PRN 02/28/18 [History] Dutasteride [Avodart] 0.5 mg PO DAILY 02/28/18 [History] Fluticasone/Vilanterol [Breo Ellipta 100-25 MCG Inhalation Kit] 1 puff IH DAILY 02/28/18 [History] Losartan [Cozaar] 100 mg PO DAILY 02/28/18 [History] Simbrinza Opth. Drops 1 drop EYELF DAILY 02/28/18 [History] Travoprost [Travatan Z] 1 drop EYELF BEDTIME 02/28/18 [History] amLODIPine Besylate [Amlodipine Besylate] 5 mg PO DAILY 02/28/18 [History] Other Amb Orders: CBC WITH AUTO DIFF [HEME] Time Frame: 03/09/18, Facility: [facility], Location: [employer] [facility] Patient Handouts: Blood Transfusion, Adult, [id number], Dizziness, Easy-to- Read Forms: ED Department Discharge Referrals: Theodore Lopez MD [Primary Care Provider] - 03/17/18 (Please call clinic tomorrow to make an appointment to see on March 17, 2018. Please talk to about possibly seeing a surgeon for a gastrointestinal evaluation related to anemia and Mahad receiving 4 units of blood.) - Discharge Summary/Plan Comment DC Time >30 min.: No Discharge Summary/Plan Comment: Impression: AMS--slept poorly, confusion--disoriented w/ change of environment; sun down GOODE--resolved; negative CT of head Lightheaded with anemia, unspecified denies change in stool; negative orthostatics Family Hx of Colon Ca, remote history of colonoscopy HTN, controlled HLD/Hypothyroid S/P PPM-->query SSN/A Fib Hx of Glaucoma Plan: Obs with telemetry was initially changed to full admission during infectious work up DC to home after negative studies Home meds, resume Tolerated heart healthy diet without difficulty Gen Surg consult provider chosen per PCP colonsocopy as an outpatient-- discussed with family - General Info Date of Service: 02/28/18 Functional Status: Reports: Tolerating Diet, Ambulating (requires walker), Urinating - Review of Systems General: Reports: No Symptoms HEENT: Reports: No Symptoms Pulmonary: Reports: No Symptoms Cardiovascular: Reports: No Symptoms Gastrointestinal: Reports: No Symptoms Genitourinary: Reports: No Symptoms Musculoskeletal: Reports: No Symptoms Skin: Reports: No Symptoms Neurological: Reports: Difficulty Walking (requires walker at baseline) Psychiatric: Reports: Confusion - Patient Data Vitals - Most Recent: Last Vital Signs Temp 36.6 C 03/02/18 11:46 Pulse 71 03/02/18 13:38 Resp 14 03/02/18 11:46 BP 146/66 H 03/02/18 13:38 Pulse Ox 100 03/02/18 13:38 Orthostatic Blood Pressure [ 125/52 Standing] Orthostatic Blood Pressure [ 124/57 Sitting] Orthostatic Blood Pressure [ 141/54 Supine] Weight - Most Recent: 76.657 kg I&O - Last 24 hours: Intake & Output 03/01/18 03/02/18 03/02/18 22:59 06:59 14:59 Intake Total 1095 300 0 Output Total 725 Balance 370 300 0 Lab Results - Last 24 hrs: Laboratory Results - last 24 hr 02/28/18 03/02/18 03/02/18 Range/Units 15:22 05:30 05:32 WBC 11.26 H (4.23-9.07) K/mm3 RBC 4.13 L (4.63-6.08) M/mm3 Hgb 10.9 L (13.7-17.5) gm/L Hct 33.3 L (40.1-51.0) % MCV 80.6 (79.0-92.2) fl MCH 26.4 (25.7-32.2) pg MCHC 32.7 (32.2-35.5) g/dl RDW Std Deviation 49.0 H (35.1-43.9) fL Plt Count 184 (163-337) K/mm3 MPV 9.6 (9.4-12.3) fl Neut % (Auto) 79.7 H (34.0-67.9) % Lymph % (Auto) 10.5 L (21.8-53.1) % [place] % (Auto) 8.1 (5.3-12.2) % Eos % (Auto) 1.1 (0.8-7.0) Baso % (Auto) 0.1 (0.1-1.2) % Neut # (Auto) 8.98 H (1.78-5.38) K/mm3 Lymph # (Auto) 1.18 L (1.32-3.57) K/mm3 [place] # (Auto) 0.91 H (0.30-0.82) K/mm3 Eos # (Auto) 0.12 (0.04-0.54) K/mm3 Baso # (Auto) 0.01 (0.01-0.08) K/mm3 Sodium (136-145) mEq/L Potassium (3.5-5.1) mEq/L Chloride (98-107) mEq/L Carbon Dioxide (21-32) mEq/L Anion Gap (5-15) BUN (7-18) mg/dL Creatinine (0.7-1.3) mg/dL Est Cr Clr Drug Dosing mL/min Estimated GFR (MDRD) (>60) mL/min BUN/Creatinine Ratio (14-18) Glucose (83-115) mg/dL Calcium (8.5-10.1) mg/dL Ferritin 31 (26-388) ng/ml Urine Color (Yellow) Urine Appearance (Clear) Urine pH (5.0-8.0) Ur Specific [place] (1.005-1.030) Urine Protein (Negative) Urine Glucose (UA) (Negative) Urine Ketones (Negative) Urine Occult Blood (Negative) Urine Nitrite (Negative) Urine Bilirubin (Negative) Urine Urobilinogen (0.2-1.0) Ur Leukocyte Esterase (Negative) Urine RBC (0-5) /hpf Urine WBC (0-5) /hpf Ur Epithelial Cells (0-5) /hpf Urine Bacteria (FEW) /hpf Urine Mucus (FEW) /hpf Blood Type O POSITIVE Gel Antibody Screen Negative Crossmatch See Detail 03/02/18 03/02/18 Range/Units 05:32 10:05 WBC (4.23-9.07) K/mm3 RBC (4.63-6.08) M/mm3 Hgb (13.7-17.5) gm/L Hct (40.1-51.0) % MCV (79.0-92.2) fl MCH (25.7-32.2) pg MCHC (32.2-35.5) g/dl RDW Std Deviation (35.1-43.9) fL Plt Count (163-337) K/mm3 MPV (9.4-12.3) fl Neut % (Auto) (34.0-67.9) % Lymph % (Auto) (21.8-53.1) % [place] % (Auto) (5.3-12.2) % Eos % (Auto) (0.8-7.0) Baso % (Auto) (0.1-1.2) % Neut # (Auto) (1.78-5.38) K/mm3 Lymph # (Auto) (1.32-3.57) K/mm3 [place] # (Auto) (0.30-0.82) K/mm3 Eos # (Auto) (0.04-0.54) K/mm3 Baso # (Auto) (0.01-0.08) K/mm3 Sodium 136 (136-145) mEq/L Potassium 4.3 (3.5-5.1) mEq/L Chloride 104 (98-107) mEq/L Carbon Dioxide 22 (21-32) mEq/L Anion Gap 14.3 (5-15) BUN 33 H (7-18) mg/dL Creatinine 2.0 H (0.7-1.3) mg/dL Est Cr Clr Drug Dosing 26.62 mL/min Estimated GFR (MDRD) 32 (>60) mL/min BUN/Creatinine Ratio 16.5 (14-18) Glucose 116 H (83-115) mg/dL Calcium 8.4 L (8.5-10.1) mg/dL Ferritin (26-388) ng/ml Urine Color Yellow (Yellow) Urine Appearance Clear (Clear) Urine pH 7.0 (5.0-8.0) Ur Specific [place] 1.020 (1.005-1.030) Urine Protein Negative (Negative) Urine Glucose (UA) Negative (Negative) Urine Ketones Negative (Negative) Urine Occult Blood Negative (Negative) Urine Nitrite Negative (Negative) Urine Bilirubin Negative (Negative) Urine Urobilinogen 0.2 (0.2-1.0) Ur Leukocyte Esterase Negative (Negative) Urine RBC Not seen (0-5) /hpf Urine WBC Not seen (0-5) /hpf Ur Epithelial Cells 0-5 (0-5) /hpf Urine Bacteria Rare (FEW) /hpf Urine Mucus Not seen (FEW) /hpf Blood Type Gel Antibody Screen Crossmatch Med Orders - Current: Current Medications Acetaminophen (Tylenol) 975 mg PO Q4H PRN PRN Reason: Pain Last Admin: 03/02/18 02:34 Dose: 975 mg Albuterol (Proventil Hfa) 0 gm INH Q4H PRN PRN Reason: Shortness of Breath Amlodipine Besylate (Norvasc) 5 mg PO BEDTIME [facility] Cholecalciferol (Vitamin D3) 1,000 units PO DAILY [facility] Last Admin: 03/02/18 08:31 Dose: 1,000 units Enoxaparin Sodium (Lovenox) 30 mg SUBCUT Q24H [facility] Last Admin: 03/02/18 14:13 Dose: Not Given Famotidine (Pepcid) 20 mg IVPUSH BID [facility] Last Admin: 03/02/18 08:31 Dose: 20 mg Finasteride (Proscar) 5 mg PO BEDTIME [facility] Labetalol HCl (Normodyne) 300 mg PO BID [facility] Latanoprost (Xalatan 0.005% Ophth Soln) 0 ml EYELF BEDTIME [facility] Levothyroxine Sodium (Levothyroxine) 75 mcg PO ACBREAKFAST [facility] Lorazepam (Ativan) 1 mg IVPUSH BEDTIME PRN PRN Reason: Insomnia Last Admin: 03/01/18 21:52 Dose: 1 mg Losartan Potassium (Cozaar) 100 mg PO DAILY [facility] Mometasone Furoate/Formoterol Fumar (Dulera 100-5 Mcg) 2 puff IH BID [facility] Simbrinza Opth. (Drops) 0 each EYELF DAILY [facility] Last Admin: 03/02/18 08:33 Dose: Not Given Dorzolamide Hcl/Timolol Maleat [ Dorzolamide-Timolol Eye Own Med 0 each .XX DAILY [facility] Sodium Chloride (Saline Flush) 10 ml FLUSH ASDIRECTED PRN PRN Reason: Keep Vein Open Last Admin: 02/28/18 15:34 Dose: 10 ml Tamsulosin HCl (Flomax) 0.8 mg PO BEDTIME [facility] Tramadol HCl (Ultram) 50 mg PO Q4H PRN PRN Reason: Pain Discontinued Medications Diphenhydramine HCl (Benadryl) 50 mg IVPUSH ONETIME ONE Stop: 02/28/18 15:09 Last Admin: 02/28/18 15:25 Dose: 50 mg Diphenhydramine HCl (Benadryl) 50 mg IVPUSH ONETIME ONE Stop: 03/01/18 20:35 Last Admin: 03/01/18 20:52 Dose: 50 mg Enoxaparin Sodium (Lovenox) 30 mg SUBCUT DAILY [facility] Enoxaparin Sodium (Lovenox) 40 mg SUBCUT DAILY [facility] Furosemide (Lasix) 40 mg IVPUSH NOW ONE Stop: 02/28/18 20:30 Last Admin: 02/28/18 20:48 Dose: 40 mg Furosemide (Lasix) 40 mg IVPUSH NOW ONE Stop: 03/01/18 13:01 Last Admin: 03/01/18 14:30 Dose: 40 mg Haloperidol Lactate (Haldol) 1 mg IVPUSH ONETIME ONE Stop: 03/01/18 20:46 Last Admin: 03/02/18 04:47 Dose: Not Given Haloperidol Lactate (Haldol) Confirm Administered Dose 5 mg .ROUTE .STK-MED ONE Stop: 03/01/18 23:48 Last Admin: 03/02/18 04:47 Dose: Not Given Sodium Chloride (Normal Saline) 1,000 mls @ 125 mls/hr IV ASDIRECTED [facility] Last Admin: 03/01/18 08:45 Dose: 125 mls/hr Sodium Chloride (Normal Saline) 250 mls @ 250 mls/hr IV ASDIRECTED [facility] Stop: 03/01/18 14:00 Last Admin: 03/01/18 14:30 Dose: 250 mls/hr Ketorolac Tromethamine (Toradol) 30 mg IVPUSH ONETIME ONE Stop: 02/28/18 15:09 Last Admin: 02/28/18 15:31 Dose: 30 mg (Albuterol 1 Puff) (*Own Med) 1 puff INH Q4H PRN PRN Reason: Shortness of Breath (Amlodipine Besylate [Amlodipine Besylate] 5 Mg) Own Med 5 mg PO DAILY [facility] Dorzolamide Hcl/Timolol Maleat [ Dorzolamide-Timolol Eye Own Med 1 drop OP TID [facility] Last Admin: 02/28/18 22:24 Dose: Not Given (Dutasteride 0.5 Mg) (Own Med) 0.5 mg PO DAILY [facility] (Fluticasone/Vilanterol 1 Puff) *Own Med 1 puff IH DAILY [facility] Last Admin: 03/01/18 19:27 Dose: Not Given (Labetalol [ Normodyne] 300 Mg) *Own Med 300 mg PO BID [facility] Last Admin: 03/02/18 08:34 Dose: Not Given (Levothyroxine [ Levothyroxine] 75 Mcg)Own Med 75 mcg PO ACBREAKFAST [facility] Last Admin: 03/02/18 06:15 Dose: 75 mcg (Losartan [Cozaar] (100 Mg)Own Med) 100 mg PO DAILY [facility] Last Admin: 03/02/18 08:33 Dose: Not Given (Tamsulosin [Flomax] 0.4 Mg)Own Med * 0.8 mg PO DAILY [facility] (Tramadol Hcl [ Tramadol Hcl] 1 Tab) Own Med 1 tab PO Q4H PRN PRN Reason: Pain (Travoprost [ Travatan Z] 1 Drop)* Own Med 1 drop EYELF BEDTIME [facility] Last Admin: 03/01/18 20:08 Dose: 1 drop (Amlodipine Besylate [Amlodipine Besylate] 5 Mg) Own Med 5 mg PO BEDTIME [facility] Last Admin: 03/01/18 20:07 Dose: 5 mg Dorzolamide Hcl/Timolol Maleat [ Dorzolamide-Timolol Eye Own Med 1 drop OP DAILY [facility] Last Admin: 03/02/18 08:40 Dose: 1 drop (Dutasteride 0.5 Mg) (Own Med) 0.5 mg PO BEDTIME [facility] Last Admin: 03/01/18 20:07 Dose: 0.5 mg (Tamsulosin [Flomax] 0.4 Mg)Own Med * 0.8 mg PO BEDTIME [facility] Last Admin: 03/01/18 20:07 Dose: 0.8 mg Pneumococcal Polyvalent Vaccine (Pneumovax 23) 0.5 ml IM .ONCE ONE Stop: 02/28/18 23:45 Prochlorperazine Edisylate (Compazine) 10 mg IVPUSH ONETIME ONE Stop: 02/28/18 15:09 Last Admin: 02/28/18 15:29 Dose: 10 mg - Exam Quality Assessment: Reports: DVT Prophylaxis General: Reports: Alert, Oriented, Cooperative, No Acute Distress HEENT: Reports: Pupils Equal, Pupils Reactive, EOMI Neck: Reports: Supple, Trachea Midline, No JVD Lungs: Reports: Normal Respiratory Effort Cardiovascular: Reports: Regular Rate, Regular Rhythm GI/Abdominal Exam: Normal Bowel Sounds, Soft, Non-Tender, No Organomegaly (Male) Exam: Deferred Rectal (Males) Exam: Deferred Back Exam: Reports: Normal Inspection Extremities: Normal Inspection, Normal Range of Motion, Normal Capillary Refill Skin: Reports: Warm Neurological: Reports: No New Focal Deficit Psy/Mental Status: Reports: Alert, Normal Affect, Normal Mood
[2018-03-02] MEDS ORDERED: Latanoprost 0.005% Ophth Soln 2.5 ML Bottle EYELF SCH (21:00)
[2018-03-02] MEDS ORDERED: Labetalol 100 MG Tab PO SCH (21:00)
[2018-03-02] MEDS ORDERED: amLODIPine 5 MG Tab PO SCH (21:00)
[2018-03-02] MEDS ORDERED: Tamsulosin 0.4 MG Cap.ER PO SCH (21:00)
[2018-03-02] MEDS ORDERED: Finasteride 5 MG Tab PO SCH (21:00)
[2018-03-03] MEDS ORDERED: Levothyroxine 75 MCG Tab PO SCH (06:00)
[2018-03-03] MEDS ORDERED: TIMOLOL MALEAT SCH (09:00)
[2018-03-03] MEDS ORDERED: DORZOLAMIDE HCL SCH (09:00)
[2018-03-03] MEDS ORDERED: Formoterol/Mometasone 100-5 MCG 8.8 GM Inhaler IH SCH (09:00)
[2018-03-03] MEDS ORDERED: Losartan 100 MG Tab PO SCH (09:00)
== END 2018-03-02 14:45 | disposition home or self-care (01) | DRG 812 ==
LOC: JD.ED 14:17 → JD.MS 19:19 → UNDOADMOB 19:19 → OBSVTOIN 03-02 10:37 → JD.MS 03-02 10:38
PROVIDERS: ADMIT Internal Medicine Cardiovascular Disease; ATTEND Internal Medicine Cardiovascular Disease
PROC: 30233N1 Transfusion of Nonautologous Red Blood Cells into Peripheral Vein, Percutaneous Approach (ICD-10-PCS; principal; 2018-02-28)
DX: D64.9 Anemia, unspecified (principal); I10 Essential (primary) hypertension; N28.9 Disorder of kidney and ureter, unspecified; K92.2 Gastrointestinal hemorrhage, unspecified; G47.30 Sleep apnea, unspecified; E03.9 Hypothyroidism, unspecified; R39.2 Extrarenal uremia; G89.29 Other chronic pain; M54.9 Dorsalgia, unspecified; R51 Headache; R41.0 Disorientation, unspecified; R06.02 Shortness of breath; I95.9 Hypotension, unspecified; R42 Dizziness and giddiness; Z79.899 Other long term (current) drug therapy; Z79.82 Long term (current) use of aspirin; Z95.0 Presence of cardiac pacemaker; Z87.891 Personal history of nicotine dependence; H40.9 Unspecified glaucoma; H35.30 Unspecified macular degeneration; R33.9 Retention of urine, unspecified; N42.9 Disorder of prostate, unspecified; Z96.649 Presence of unspecified artificial hip joint; Z80.0 Family history of malignant neoplasm of digestive organs
CPT/HCPCS: 36415 ×3; 36430 ×2; 70450; 71046; 80048 ×2; 80053; 81001; 82728; 83735; 84484; 85018; 85025 ×2; 85045; 86850; 86900; 86901; 86922 ×2; 87086; 93005; 96361; 96374; 96375; 99285; A9270 ×14; J0780; J1200 ×2; J1885; J1940 ×2; J2060; J7040 ×2; J7050 ×3; P9016 ×4; 93010; G0378

== ENCOUNTER 2018-04-14 07:50 | Day surgery (SDC) | payer MEDICARE, BC ==
[~2018-04-14 07:50] MED LIST: Lactated Ringers 1,000 ML IV SCH; Lidocaine 1%/Sod Bicarbonate in NS 8.4% 1 ML Syringe IDERM PRN; Sodium Chloride 0.9% 10 ML Syringe FLUSH PRN
--- NOTE | 2018-04-14 08:37 | PCM.PREANE ---
Preanesthetic Assessment - Anesthesia/Transfusion/Family Hx Anesthesia History: Prior Anesthesia Without Reaction Family History of Anesthesia Reaction: No Transfusion History: Prior Transfusion Without Reaction Intubation History: Unknown - Review of Systems General: Weakness, Fatigue Pulmonary: No Symptoms (SHAHAB, uses CPAP/quit smoking in 1975) Cardiovascular: No Symptoms (SSS-pacemaker noted, HTN, diastolic dysfunction), Dyspnea on Exertion, Lightheadedness Gastrointestinal: No Symptoms Neurological: No Symptoms (Back pain-right upper leg pain), Dizziness, Weakness Other: Reports: Thyroid Problems (hypothyroid), Sinus Problem - Physical Assessment NPO Status Date: 04/12/18 NPO Status Time: 17:30 Pulse: 62 O2 Sat by Pulse Oximetry: 94 Respiratory Rate: 17 Blood Pressure: 150/77 Temperature: 97.6 C Height: 1.63 m Weight: 78 kg ASA Class: 3 Mental Status: Alert & Oriented x3 Airway Class: Mallampati = 2 Dentition: Reports: Normal Dentition, Caries Thyro-Mental Finger Breadths: 3 Mouth Opening Finger Breadths: 3 ROM/Head Extension: Full Lungs: Clear to Auscultation, Normal Respiratory Effort Cardiovascular: Regular Rate, Regular Rhythm, No Murmurs - Lab Values: Lab values reviewed and noted and within acceptable ranges to proceed with scheduled procedure. - Imaging/EKG Impressions: EKG: Atrial ventricular dual paced complexes Stress Test 2017: no abnormalities Echo: EF 65-70% - Allergies Allergies/Adverse Reactions: Allergies Allergy/AdvReac Type Severity Reaction Status Date / Time celecoxib [From Celebrex] Allergy Cannot Verified 04/13/18 12:23 Remember - Anesthesia Plan Pre-Op Medication Ordered: Beta Tran Beta Tran: Labetalol Med Last Dose Date: 04/14/18 Med Last Dose Time: 07:15 - Acknowledgements Anesthesia Type Planned: MAC Pt an Appropriate Candidate for the Planned Anesthesia: Yes Alternatives and Risks of Anesthesia Discussed w Pt/Guardian: Yes Pt/Guardian Understands and Agrees with Anesthesia Plan: Yes PreAnesthesia Questionnaire HEENT History: Reports: Cataract, Glaucoma, Impaired Vision, Macular Degeneration Cardiovascular History: Reports: Hypertension, Pacemaker, SOB on Exertion Respiratory History: Reports: Sleep Apnea, Other (See Below) Other Respiratory History: wheezing, dypsnea Gastrointestinal History: Reports: Diverticulosis Genitourinary History: Reports: BPH, Prostate Disorder, Retention, Urinary, Other (See Below) Other Genitourinary History: chronic renal failure [employer] History: Reports: None Musculoskeletal History: Reports: Back Pain, Chronic Other Musculoskeletal History: chronic hip pain , cervical radicular pain Neurological History: Reports: Other (See Below) Other Neuro History: dizziness, cervical radicular pain, spinal cervical stenosis Psychiatric History: Reports: None Endocrine/Metabolic History: Reports: Hypothyroidism Hematologic History: Reports: Anemia Immunologic History: Reports: None Oncologic (Cancer) History: Reports: None Dermatologic History: Reports: None - Past Surgical History Head Surgeries/Procedures: Reports: None HEENT Surgical History: Reports: Eye Surgery Cardiovascular Surgical History: Reports: Pacer Respiratory Surgical History: Reports: None GI Surgical History: Reports: Colonoscopy, Hernia Repair/Other Male Surgical History: Reports: None Endocrine Surgical History: Reports: None Neurological Surgical History: Reports: Other (See Below) Other Neurological Surgeries/Procedures: spine surgery with hardware Musculoskeletal Surgical History: Reports: Hip Replacement, Other (See Below) Other Musculoskeletal Surgeries/Procedures:: back surgery Oncologic Surgical History: Reports: None Dermatological Surgical History: Reports: None - SUBSTANCE USE Smoking Status *Q: Former Smoker Recreational Drug Use History: No - HOME MEDS Home Medications: Home Meds Acetaminophen [Tylenol Extra Strength] 1,000 mg PO Q4HR PRN 07/01/16 [History] Calcium Carbonate [Calcium] 500 mg PO DAILY 07/01/16 [History] Cholecalciferol (Vitamin D3) [D3-2000] 1,000 unit PO DAILY 07/01/16 [History] Furosemide 20 tab PO DAILY 07/01/16 [History] Labetalol [Normodyne] 300 mg PO BID 07/01/16 [History] Levothyroxine 75 mcg PO ACBREAKFAST 07/01/16 [History] Tamsulosin [Flomax] 0.8 mg PO DAILY 07/01/16 [History] traMADol HCl [Tramadol HCl] 50 mg PO Q4H PRN 07/01/16 [History] Albuterol [Ventolin HFA] 1 puff INH Q4H PRN 02/28/18 [History] Dutasteride [Avodart] 0.5 mg PO DAILY 02/28/18 [History] Losartan [Cozaar] 100 mg PO DAILY 02/28/18 [History] Travoprost [Travatan Z] 1 drop EYELF BEDTIME 02/28/18 [History] amLODIPine Besylate [Amlodipine Besylate] 5 mg PO DAILY 02/28/18 [History] Dorzolamide HCl/Timolol Maleat [Cosopt Eye Drops] 1 drop EYERT BID 04/13/18 [ History] - CURRENT (IN HOUSE) MEDS Current Meds: Current Medications Lactated Ringer's (Ringers, Lactated) 1,000 mls @ 125 mls/hr IV ASDIRECTED [facility] Stop: 04/14/18 23:00 Lidocaine/Sodium Bicarbonate (Buffered Lidocaine 1% In Ns 8.4%) 0.25 ml IDERM ONETIME PRN PRN Reason: Prior to IV Start Stop: 04/14/18 18:00 Sodium Chloride (Saline Flush) 10 ml FLUSH ASDIRECTED PRN PRN Reason: Keep Vein Open Stop: 04/14/18 18:00
[2018-04-14] MEDS ORDERED: Lidocaine 1% 4 ML ONE (09:28)
[2018-04-14] MEDS ORDERED: Propofol 200 MG/20 ML SDV ONE ×3 (09:28→10:19)
--- NOTE | 2018-04-14 10:38 | PCM.OPNOTE ---
- General Post-Op/Procedure Note Date of Surgery/Procedure: 04/14/18 Operative Procedure(s): egd with bx and colonosocopy with polypectomy times three Pre Op Diagnosis: anemia Post-Op Diagnosis: Same Anesthesia Technique: MAC Primary Surgeon: Ian Chaudhary EBL in mLs: 0 Complications: None Condition: Good
[2018-04-14 12:01] VITALS: BP 134/74
--- NOTE | 2018-04-14 13:16 | OR ---
DATE OF OPERATION: 04/14/2018 SURGEON: Ian Chaudhary MD PREOPERATIVE DIAGNOSIS: Anemia. POSTOPERATIVE DIAGNOSIS: Anemia. OPERATION PERFORMED: Esophagogastroduodenoscopy with biopsy done under IV sedation. FINDINGS: Some erythema in the duodenal bulb, which was biopsied. Presence of a large hiatal hernia with a 3rd of the stomach above the diaphragm with some erythema at the edge of the stomach where the diaphragm impinges. This was biopsied. The GE junction is located at 30 cm was free of any pathology as was the balance of the esophagus. The body and cardia, fundus and antrum did not show any acute pathology. DESCRIPTION OF PROCEDURE: The patient was taken to the endoscopy room, placed in a supine position, connected to monitoring equipment, given IV sedation, and placed in the left lateral position. Bite block was inserted. Video Olympus gastroscope placed in the posterior oropharynx, under direct vision threaded past the cricopharyngeus down the esophagus into the stomach, then threaded to the second portion of the duodenum which was unremarkable. Duodenal bulb showed erythematous areas which were biopsied. Antrum was unremarkable. It was biopsied looking for "H. pylori." Body and cardia of the stomach other than the hiatal hernia did not show any acute disease. At the edge of the hiatal hernia was some erythema on the stomach and this was biopsied. GE junction was evaluated at 30 cm, this was free of any pathology, and the rest of the esophagus was normal and was seen as the scope withdrawn. The patient tolerated the procedure. Specimen sent to pathology in a labeled container and the patient will have IV sedation continued for a colonoscopy. ANESTHESIA: ESTIMATED BLOOD LOSS: MMODAL /[id number]
--- NOTE | 2018-04-14 13:16 | OR ---
DATE OF OPERATION: 04/14/2018 SURGEON: Ian Chaudhary MD PREOPERATIVE DIAGNOSIS: Anemia. POSTOPERATIVE DIAGNOSIS: Anemia. OPERATION PERFORMED: Colonoscopy to cecum done under IV sedation, polypectomy x3. The 1st was a diminutive polyp at the cecum which was removed completely by cautery snare and retrieved. Another diminutive polyp in the descending colon, which was removed by cautery snare and retrieved, and the site secured with a clip, and the third polyp was in the sigmoid colon at 45 cm which was removed by cautery snare but because of the active colonic contractions was not retrieved. FINDINGS: Diminutive polyps as described above. There were no angiodysplasias, large tumor masses, ulcerations, diverticulum, or notable hemorrhoids. ANESTHESIA: Procedure done under IV sedation. DESCRIPTION OF PROCEDURE: The patient was taken to the endoscopy room, placed in a supine position, and having been connected to monitoring equipment where upper GI endoscopy was done and IV sedation given. IV sedation was continued for colonoscopy, placed in the left lateral position. Perianal area was inspected and was normal. Rectal exam showed good sphincter tone. Video Olympus colonoscope was then introduced into the rectum and threaded up without problem to the cecum, where the appendicular orifice was noted. Prep was excellent. [place] cleansing score grade A and the scope was slowly withdrawn showing the cecum, ascending colon, transverse colon, descending colon, sigmoid colon, and rectum. Rectum and sigmoid colon were very active in contractions and view, which inhibited the ability to retrieve polyp and to see the terminal or the hemorrhoidal area well. Polyp was noted just at the cecal appendicular orifice and this was removed with cautery snare and retrieved. A second polyp was noted in the descending colon, which was removed by cautery snare and the area secured with a clip and both of these were retrieved. The third polyp was diminutive, it was removed by cautery snare, but not retrievable because of the technical factors. The patient tolerated the procedure, sent to recovery room in a stable condition, and will be followed up in the clinic. Specimen sent to pathology in a labeled container. The patient will be followed up by Dr. Lopez. ESTIMATED BLOOD LOSS: MMODAL /[id number]
== END 2018-04-14 11:35 | disposition home or self-care (01) ==
LOC: JD.SDS 07:50
PROVIDERS: ATTEND Surgery
DX: D64.9 Anemia, unspecified (principal); D12.0 Benign neoplasm of cecum; K51.40 Inflammatory polyps of colon without complications; K29.80 Duodenitis without bleeding; K31.89 Other diseases of stomach and duodenum; K44.9 Diaphragmatic hernia without obstruction or gangrene; I13.0 Hypertensive heart and chronic kidney disease with heart failure and stage 1 through stage 4 chronic kidney disease, or unspecified chronic kidney disease; I50.32 Chronic diastolic (congestive) heart failure; N18.3 Chronic kidney disease, stage 3 (moderate); E03.9 Hypothyroidism, unspecified; G47.33 Obstructive sleep apnea (adult) (pediatric); Z87.891 Personal history of nicotine dependence; Z80.0 Family history of malignant neoplasm of digestive organs; Z79.899 Other long term (current) drug therapy; Z88.6 Allergy status to analgesic agent; Z95.0 Presence of cardiac pacemaker
CPT/HCPCS: 43239; 45385; J2001; J7120; J2704

== ENCOUNTER 2019-09-24 05:57 | Emergency (ER) | payer MEDICARE, BC ==
[2019-09-24 06:17] VITALS: PULSE 76
--- NOTE | 2019-09-24 06:45 | EDM.PDOC ---
ED HPI GENERAL MEDICAL PROBLEM - General Chief Complaint: Respiratory Problem Stated Complaint: SOB/HEADACHE Time Seen by Provider: 09/24/19 06:06 Source of Information: Reports: Patient, Family (, daughter, + 2 other men) History Limitations: Reports: No Limitations - History of Present Illness INITIAL COMMENTS - FREE TEXT/NARRATIVE: Mr. Rascon is a very pleasant 84-year-old man with a past medical history significant for retention, chronic renal insufficiency, obstructive sleep apnea on nightly CPAP, and BPH with urinary retention, who was brought to the ED stating that he has had generalized weakness that has been progressively worsening over the past 2-3 weeks. He developed neck stiffness when he woke up 2 mornings ago, which has persisted, and he had a headache which has been constant since he woke up around 05:00 this morning. He also complains of dry oral mucosa. He denies having recent fever, nausea, vomiting, constipation, diarrhea, abdominal pain, or dysuria, although he states that he occasionally has to urinate often. No recent chest pain or palpitations, black bowel movements or bloody bowel movements, recent weight gain or weight loss, joint aches, or rashes. The patient's tells me that he was given some Tylenol and tramadol this morning. He takes these on a regular basis, do to chronic right hip pain. The patient's PCP is Dr. Theodore Lopez. His Shear Assembler is Dr. Florentino Sanabria. His Orthopedic Surgeon is Dr. Tian Lacy. The patient did receive an influenza vaccine this season. Treatments TECHNICAL REP: Reports: Acetaminophen Temporal Headache Pain Score (Numeric/FACES): 8 Occipital Headache Pain Score (Numeric/FACES): 8 - Related Data Allergies Allergy/AdvReac Type Severity Reaction Status Date / Time celecoxib [From Celebrex] Allergy Cannot Verified 09/24/19 06:15 Remember Home Meds: Home Meds Acetaminophen [Tylenol Extra Strength] 1,000 mg PO Q4HR PRN 07/01/16 [History] Calcium Carbonate [Calcium] 500 mg PO DAILY 07/01/16 [History] Cholecalciferol (Vitamin D3) [D3-2000] 1,000 unit PO DAILY 07/01/16 [History] Furosemide 20 mg PO DAILY 07/01/16 [History] Labetalol [Normodyne] 300 mg PO BID 07/01/16 [History] Levothyroxine 88 mcg PO ACBREAKFAST 07/01/16 [History] Tamsulosin [Flomax] 0.4 mg PO DAILY 07/01/16 [History] traMADol HCl [Tramadol HCl] 50 mg PO Q4H PRN 07/01/16 [History] Albuterol [Ventolin HFA] 1 puff INH Q4H PRN 02/28/18 [History] Dutasteride [Avodart] 0.5 mg PO DAILY 02/28/18 [History] Losartan [Cozaar] 100 mg PO DAILY 02/28/18 [History] Travoprost [Travatan Z] 1 drop EYELF BEDTIME 02/28/18 [History] amLODIPine Besylate [Amlodipine Besylate] 5 mg PO DAILY 02/28/18 [History] Dorzolamide HCl/Timolol Maleat [Cosopt Eye Drops] 1 drop EYERT BID 04/13/18 [ History] Past Medical History HEENT History: Reports: Glaucoma, Macular Degeneration Cardiovascular History: Reports: Hypertension Respiratory History: Reports: Sleep Apnea (nightly CPAP) Gastrointestinal History: Reports: Diverticulosis Genitourinary History: Reports: BPH, Chronic Renal Insuffiency, Retention, Urinary (2 BPH) Endocrine/Metabolic History: Reports: Hypothyroidism Hematologic History: Reports: Anemia - Past Surgical History HEENT Surgical History: Reports: Cataract Surgery ( bilateral) Cardiovascular Surgical History: Reports: Pacer (unknown why) GI Surgical History: Reports: Colonoscopy, Hernia Repair/Other Neurological Surgical History: Reports: C-Spine (Anterior and posterior cervical discectomy & fusion), Lumbar Spine (fusion, x 5) Musculoskeletal Surgical History: Reports: Hip Replacement (Rt, + 2 revisions) Social & Family History - Family History Family Medical History: Noncontributory - Tobacco Use Smoking Status *Q: Former Smoker Years of Tobacco use: 14 Packs/Tins Daily: 0.5 Month/Year Tobacco Last Used: Quit 1970 Second Hand Smoke Exposure: No - Caffeine Use Caffeine Use: Reports: Coffee, Tea Other Caffeine Use: 2 cups of coffee a day - Alcohol Use Alcohol Use History: Yes Alcohol Use Frequency: Socially - Recreational Drug Use Recreational Drug Use: No - Living Situation & Occupation Living situation: Reports: , with Spouse Occupation: Retired ED ROS GENERAL - Review of Systems Review Of Systems: Comprehensive ROS is negative, except as noted in HPI. Musculoskeletal: Reports: Back Pain (chronic), Other (Chronic right hip pain) ED EXAM, GENERAL - Physical Exam Exam: See Below Exam Limited By: No Limitations General Appearance: Alert, WD/WN, No Apparent Distress Eye Exam: Bilateral Eye: EOMI, Normal Inspection Ears: Normal External Exam, Hearing Loss Nose: Normal Inspection Throat/Mouth: Normal Inspection, Normal Lips, Normal Voice, No Airway Compromise Head: Atraumatic, Normocephalic Neck: Normal Inspection, Other (Well-healed posterior midline scar) Respiratory/Chest: No Respiratory Distress, Lungs Clear, Normal Breath Sounds, No Accessory Muscle Use. No: Decreased Breath Sounds, Crackles, Rhonchi, Wheezing, Stridor, Prolonged Expiration Cardiovascular: Normal Peripheral Pulses, Regular Rate, Rhythm, No Edema, No Gallop, No JVD, No Murmur, No Rub Peripheral Pulses: 4+: Radial (L), Radial (R) GI/Abdominal: Normal Bowel Sounds, Soft, Non-Tender, No Organomegaly, No Distention, No Abnormal Bruit, No Mass (Male) Exam: Deferred Rectal (Males) Exam: Deferred Back Exam: Normal Inspection, Full Range of Motion, NT Extremities: No Pedal Edema, Normal Capillary Refill Neurological: Alert, Oriented, CN II-XII Intact, Normal Cognition, Normal Gait, Normal Reflexes, No Motor/Sensory Deficits Psychiatric: Normal Affect, Normal Mood Skin Exam: Warm, Dry, Intact, Normal Color, No Rash Lymphatic: No Adenopathy EKG INTERPRETATION EKG Date: 09/24/19 Time: 06:44 Rhythm: NSR Rate (Beats/Min): 72 [place]: Normal P-Wave: Present (1 AVB) QRS: Normal (Late transition. LVH.) ST-T: Normal QT: Normal Comparison: No Change (02/28/2018) Course - Vital Signs Last Recorded V/S: Last Vital Signs Temp 36.6 C 09/24/19 06:06 Pulse 76 09/24/19 06:06 Resp 26 H 09/24/19 06:06 BP Pulse Ox 95 09/24/19 06:06 - Orders/Labs/Meds Orders: Active Orders 24 hr Category Date Time Status EKG Documentation Completion [RC] STAT Care 09/24/19 06:34 Active Insert Cannon Catheter [Insert Urinary Catheter] [OM.PC] Care 09/24/19 09:15 Ordered Q24H Urinary Catheter Assessment [RC] ASDIRECTED Care 09/24/19 09:05 Active CULTURE BLOOD [BC] Stat Lab 09/24/19 06:52 Received CULTURE BLOOD [BC] Stat Lab 09/24/19 06:59 Received Blood Culture x2 Reflex Set [OM.PC] Stat Oth 09/24/19 06:36 Ordered Labs: Laboratory Tests 09/24/19 09/24/19 09/24/19 Range/Units 06:09 06:09 09:04 WBC 7.83 (4.23-9.07) K/mm3 RBC 3.68 L (4.63-6.08) M/mm3 Hgb 11.8 L (13.7-17.5) gm/dl Hct 35.7 L (40.1-51.0) % MCV 97.0 H (79.0-92.2) fl MCH 32.1 (25.7-32.2) pg MCHC 33.1 (32.2-35.5) g/dl RDW Std Deviation 43.5 (35.1-43.9) fL Plt Count 208 (163-337) K/mm3 MPV 9.7 (9.4-12.3) fl Neutrophils % (Manual) 74 H (40-60) % Band Neutrophils % 0 (0-10) % Lymphocytes % (Manual) 16 L (20-40) % Atypical Lymphs % 0 % Monocytes % (Manual) 8 (2-10) % Eosinophils % (Manual) 2 (0.8-7.0) % Basophils % (Manual) 0 L (0.2-1.2) Platelet Estimate Adequate RBC Morph Comment Normal Sodium 137 (136-145) mEq/L Potassium 4.3 (3.5-5.1) mEq/L Chloride 103 (98-107) mEq/L Carbon Dioxide 22 (21-32) mEq/L Anion Gap 16.3 H (5-15) BUN 30 H (7-18) mg/dL Creatinine 1.6 H (0.7-1.3) mg/dL Est Cr Clr Drug Dosing 33.25 mL/min Estimated GFR (MDRD) 41 (>60) mL/min BUN/Creatinine Ratio 18.8 H (14-18) Glucose 121 H (83-115) mg/dL Calcium 8.8 (8.5-10.1) mg/dL Magnesium 2.0 (1.8-2.4) mg/dl Total Bilirubin 0.5 (0.2-1.0) mg/dL AST 23 (15-37) U/L ALT 25 (16-63) U/L Alkaline Phosphatase 85 (46-116) U/L Troponin I < 0.017 (0.00-0.056) ng/mL Total Protein 7.3 (6.4-8.2) g/dl Albumin 3.4 (3.4-5.0) g/dl Globulin 3.9 gm/dL Albumin/Globulin Ratio 0.9 L (1-2) Urine Color Yellow (Yellow) Urine Appearance Clear (Clear) Urine pH 6.0 (5.0-8.0) Ur Specific [place] > or = 1.030 (1.005-1.030) Urine Protein Trace H (Negative) Urine Glucose (UA) Negative (Negative) Urine Ketones Negative (Negative) Urine Occult Blood Negative (Negative) Urine Nitrite Negative (Negative) Urine Bilirubin Negative (Negative) Urine Urobilinogen 0.2 (0.2-1.0) Ur Leukocyte Esterase Negative (Negative) Urine RBC Not seen (0-5) /hpf Urine WBC Not seen (0-5) /hpf Ur Squamous Epith Cells 0-5 (0-5) /hpf Amorphous Sediment Rare H (NOT SEEN) /hpf Urine Bacteria Few (FEW) /hpf Hyaline Casts 0-5 (0-5) /lpf Urine Mucus Not seen (FEW) /hpf - Re-Assessments/Exams Free Text/Narrative Re-Assessment/Exam: 09/24/19 06:40 The etiology of the patient's symptoms is not immediately clear. Essentially, he is suffering from a headache, some neck stiffness, generalized weakness, and dry feeling oral mucosa, but no other significant symptoms. The patient may be suffering from a mild viral URI, or perhaps an unusual presentation of influenza. To be thorough, I have ordered a workup that includes blood work, urinalysis, and ECG, a chest x-ray, an influenza swab, and a CT scan of his head. 09/24/19 08:32 Portable chest radiograph reviewed. There is mild cardiomegaly, but no pulmonary vascular congestion. No pleural effusions seen on this AP view. No focal infiltrate. No pneumothorax. There is a large hiatal hernia. There is a 2- chamber left-sided a sneaker. Formal read per the Radiologist pending. 09/24/19 09:24 The patient's CBC is remarkable for an H/H mildly depressed at 11.8/35.7, with the remainder of his CBC is unremarkable. His CMP is remarkable for a BUN/Cr been slightly elevated at 30/1.6, an anion gap mildly elevated at 16.3 with a normal bicarbonate of 22, and a blood glucose mildly elevated at 121, with the remainder of the CMP being unremarkable. His magnesium level is within normal limits at 2.0. His troponin is undetectably low. His influenza swab is negative. The patient's BUN/Cr were 28/1.7 on 07/13/2019. The patient's urinalysis and CT of the head results are still pending. 09/24/19 09:30 CT of the head without contrast is read by Dr. Irizarry as: 1. Mucosal thickening within the sphenoid and ethmoid sinuses. This finding is an interval change from previous exam. 2. Retention cyst within the left maxillary sinus. 3. Senescent change as noted above. No acute intracranial abnormality is seen. 09/24/19 10:03 The patient's urinalysis is unremarkable. Based on the CT results, I suspect that the patient's symptoms are due to sinusitis. 09/24/19 10:09 Test results discussed with the patient and his . I explained that the patient likely has a viral URI which led to his sinusitis. The patient's mentioned that the patient has started to use Benadryl to treat recent rhinorrhea. I explained that Benadryl is inappropriate for this patient for several reasons, including that will thicken the nasal creations, making them more difficult to drain from the sinuses, that it will cause him to not be able to urinate (such as was the case today - his nurse needed to acquire the urinalysis by quick catheterization), and it may contribute to confusion. Instead, I am recommending that the patient start using a nasal saline spray. Given his age, I don't believe it would be a good idea if he started to use a nasal decongestant spray, however. Departure - Departure Time of Disposition: 10:11 Disposition: Home, Self-Care Condition: Good Clinical Impression: Sinusitis, Viral URI - Discharge Information *PRESCRIPTION DRUG MONITORING PROGRAM REVIEWED*: Not Applicable *COPY OF PRESCRIPTION DRUG MONITORING REPORT IN PATIENT CHASE: Not Applicable Referrals: Theodore Lopez MD [Primary Care Provider] - Florentino Sanabria MD [Ordering Only Provider] - Tian Lacy MD [Physician] - Forms: ED Department Discharge Additional Instructions: You were seen in the emergency room for a headache, neck stiffness, generalized weakness, and dry mucous membranes. Workup in the ER included blood work, 2 sets of blood cultures, a urinalysis, an influenza swab, a portable chest x-ray, a CT scan of your head, and an ECG. Your entire workup was unremarkable, except that the CT scan of your head found that you have sinusitis. Based on your history, physical exam, and ER tests, you are most likely suffering from a viral URI (also known as a common cold), with sinusitis. We strongly recommend that you discontinue Benadryl, as Benadryl will thicken your nasal drainages, making them more difficult to drain from your sinuses. Benadryl will also make it more difficult for you to urinate, and can cause some confusion. We recommend that you purchase a nasal saline spray in a pressurized can, such as "Simply Saline". [place] this up each nostril several times per day. Follow-up with your PCP, Dr. Theodore Lopez, early next week if your symptoms have not significantly improved. If any other problems, please do not hesitate to return to the ER. Sepsis Event Note - Evaluation Sepsis Screening Result: No Definite Risk - Focused Exam Vital Signs: Vital Signs Temp Pulse Resp Pulse Ox 09/24/19 06:06 36.6 C 76 26 H 95 Date Exam was Performed: 09/24/19 Time Exam was Performed: 10:03 - My Orders Last 24 Hours: My Active Orders 09/24/19 06:34 EKG Documentation Completion [RC] STAT 09/24/19 06:36 Blood Culture x2 Reflex Set [OM.PC] Stat 09/24/19 06:52 CULTURE BLOOD [BC] Stat 09/24/19 06:59 CULTURE BLOOD [BC] Stat 09/24/19 09:05 Urinary Catheter Assessment [RC] ASDIRECTED 09/24/19 09:15 Insert Cannon Catheter [Insert Urinary Catheter] [OM.PC] Q24H - Assessment/Plan Last 24 Hours: My Active Orders 09/24/19 06:34 EKG Documentation Completion [RC] STAT 09/24/19 06:36 Blood Culture x2 Reflex Set [OM.PC] Stat 09/24/19 06:52 CULTURE BLOOD [BC] Stat 09/24/19 06:59 CULTURE BLOOD [BC] Stat 09/24/19 09:05 Urinary Catheter Assessment [RC] ASDIRECTED 09/24/19 09:15 Insert Cannon Catheter [Insert Urinary Catheter] [OM.PC] Q24H
--- NOTE | 2019-09-24 07:50 | CR ---
Chest: Portable view of the chest was obtained. Comparison: Prior chest x-ray of 03/02/18. Heart is mildly enlarged. Hiatal hernia is present. Bichamber pacemaker is noted. Lungs are clear with no acute parenchymal change. Bony structures are grossly intact. Previous lumbar spine surgery is noted. Impression: 1. Findings as noted above. 2. Nothing acute is definitely appreciated. Diagnostic code #2 This report was dictated in [place] Standard Time
--- NOTE | 2019-09-24 07:50 | CT ---
Head CT Technique: Multiple axial sections through the brain were obtained. Intravenous contrast was not utilized. Comparison: Previous noncontrast head CT study of 02/28/18. Findings: Ventricles along with basal cisterns and sulci over the convexities are mildly prominent. Minimal diminished density is noted within the periventricular white matter which is compatible with small vessel ischemic demyelination change. 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 No other abnormal parenchymal densities are seen. No evidence of intracranial hemorrhage. No midline shift or mass effect is seen. Mucosal thickening is seen within the sphenoid sinus. Mild mucosal thickening is seen within the ethmoid sinuses. Retention cyst is noted within the left maxillary sinus measuring 1.5 cm. Mastoid sinuses are clear. No acute calvarial abnormality is seen. Small metallic density is noted within the anterior left globe presumably due to stable foreign body. Impression: 1. Mucosal thickening within the sphenoid and ethmoid sinuses. This finding is an interval change from previous exam. 2. Retention cyst within the left maxillary sinus. 3. Senescent change as noted above. No acute intracranial abnormality is seen. Diagnostic code #3 This report was dictated in [place] Standard Time
== END 2019-09-24 10:15 | disposition home or self-care (01) ==
LOC: JD.ED 05:57
DX: J06.9 Acute upper respiratory infection, unspecified (principal); J32.9 Chronic sinusitis, unspecified; I10 Essential (primary) hypertension; Z88.8 Allergy status to other drugs, medicaments and biological substances; Z79.899 Other long term (current) drug therapy; Z87.890 Personal history of sex reassignment
CPT/HCPCS: 36415; 70450; 70450-26; 71045; 71045-26; 80053; 81001; 83735; 84484; 85007; 85027; 87040; 87804; 93005; 99285-25

== ENCOUNTER 2022-01-16 18:45 | Emergency (ER) | payer MEDICARE, BC ==
[2022-01-16 18:54] VITALS: BP 165/88; PULSE 65
[2022-01-16] MEDS ORDERED: Amoxicillin/Clavulanate K 875-125 MG Tab PO ONE (21:08)
[2022-01-16] MEDS ORDERED: Doxycycline 100 MG Cap PO ONE (21:10)
== END 2022-01-17 08:50 | disposition home or self-care (01) ==
LOC: JD.ED 18:45
DX: J18.9 Pneumonia, unspecified organism (principal); I10 Essential (primary) hypertension; E03.9 Hypothyroidism, unspecified; Z88.8 Allergy status to other drugs, medicaments and biological substances; Z79.899 Other long term (current) drug therapy; Z20.822 Contact with and (suspected) exposure to COVID-19
CPT/HCPCS: 36415; 71045; 80053; 83605; 83735; 85025; 86140; 87040; 93005; 99285; A9270; U0002; 93010

== ENCOUNTER 2022-01-24 08:50 | Inpatient (IN) | payer MEDICARE, BC ==
[2022-01-24] MEDS ORDERED: Sodium Chloride 0.9% 10 ML Syringe FLUSH PRN (09:21)
[2022-01-24] MEDS ORDERED: Albuterol/Ipratropium 3.0-0.5 MG/3 ML Neb Soln NEB ONE (09:22)
[2022-01-24 10:22] LABS: CORONAVIRUS COVID-19 NAA NEGATIVE (NEGATIVE)
[2022-01-24] MEDS ORDERED: cefTRIAXone 2 GM in Sodium Chloride 0.9% 100 ML IV ONE (11:37)
[2022-01-24] MEDS ORDERED: Sodium Chloride 0.9% 500 ML IV ONE (11:44)
[2022-01-24] MEDS ORDERED: Ondansetron 4 MG Tab.DIS PO PRN (13:23)
[2022-01-24] MEDS ORDERED: Temazepam 7.5 MG Cap PO PRN (13:23)
[2022-01-24] MEDS ORDERED: oxyCODONE 5 MG Tab PO PRN (13:23)
[2022-01-24] MEDS ORDERED: Sodium Chloride 0.9% 1,000 ML IV SCH (13:30)
[2022-01-24] MEDS: Heparin Sodium 5,000 Units/ML Vial SUBCUT SCH ×2 (14:34→20:49)
[2022-01-24] MEDS ORDERED: traZODone 50 MG Tab PO PRN (18:24)
[2022-01-24] MEDS: Acetaminophen 325 MG Tab PO PRN (18:26)
[2022-01-24] MEDS: Albuterol/Ipratropium 3.0-0.5 MG/3 ML Neb Soln NEB PRN (20:27)
[2022-01-24] MEDS: Labetalol 100 MG Tab PO SCH (20:49)
[2022-01-24] MEDS: Latanoprost 0.005% Ophth Soln 2.5 ML Bottle EYEBOTH SCH (20:51)
[2022-01-24] MEDS ORDERED: Dorzolamide/Timolol 2%-0.5% Ophth Soln 10 ML Bottle EYERT SCH (21:00)
[2022-01-25] MEDS ORDERED: Levothyroxine 100 MCG Tab PO SCH (06:00)
[2022-01-25] MEDS: Levothyroxine 100 MCG Tab PO SCH (06:30)
[2022-01-25] MEDS: Heparin Sodium 5,000 Units/ML Vial SUBCUT SCH ×3 (06:30→20:33)
[2022-01-25] MEDS: amLODIPine 2.5 MG Tab PO SCH (08:57)
[2022-01-25] MEDS: Cholecalciferol (Vitamin D3) 25 MCG Tab PO SCH (08:57)
[2022-01-25] MEDS: Furosemide 20 MG Tab PO SCH (08:57)
[2022-01-25] MEDS: Tamsulosin 0.4 MG Cap.ER PO SCH ×2 (08:57→20:32)
[2022-01-25] MEDS: Finasteride 5 MG Tab PO SCH (08:57)
[2022-01-25] MEDS: Losartan 100 MG Tab PO SCH (08:58)
[2022-01-25] MEDS: Labetalol 100 MG Tab PO SCH ×2 (08:58→20:30)
[2022-01-25] MEDS ORDERED: Memantine 10 MG Tab PO SCH (09:00)
[2022-01-25] MEDS: Albuterol/Ipratropium 3.0-0.5 MG/3 ML Neb Soln NEB PRN (09:03)
[2022-01-25] MEDS: Azithromycin 500 MG in Sodium Chloride 0.9% 250 ML IV SCH (10:23)
[2022-01-25] MEDS: cefTRIAXone 2 GM in Sodium Chloride 0.9% 100 ML IV SCH (11:58)
[2022-01-25] MEDS: Albuterol/Ipratropium 3.0-0.5 MG/3 ML Neb Soln NEB SCH ×2 (15:14→20:52)
[2022-01-25] MEDS: Acetaminophen 325 MG Tab PO PRN ×2 (16:22→20:31)
[2022-01-25] MEDS: traMADol 50 MG Tab PO PRN (18:45)
[2022-01-25] MEDS: Timolol Maleate 0.5% Ophth Soln 5 ML Bottle EYEBOTH SCH (20:29)
[2022-01-25] MEDS: Latanoprost 0.005% Ophth Soln 2.5 ML Bottle EYEBOTH SCH (20:30)
[2022-01-25] MEDS: Memantine 10 MG Tab PO SCH (20:33)
[2022-01-25] MEDS ORDERED: Latanoprost 0.005% Ophth Soln 2.5 ML Bottle EYEBOTH SCH (21:00)
[2022-01-25] MEDS ORDERED: Non-Formulary Medication 1 Each (Memantine Hcl [Memantine Hcl] 5 MG Tablet) PO SCH (21:00)
[2022-01-26] MEDS: traMADol 50 MG Tab PO PRN ×3 (04:47→20:14)
[2022-01-26] MEDS: Heparin Sodium 5,000 Units/ML Vial SUBCUT SCH ×5 (04:47→21:03)
[2022-01-26] MEDS: Levothyroxine 100 MCG Tab PO SCH ×2 (04:48→05:15)
[2022-01-26] MEDS: Albuterol/Ipratropium 3.0-0.5 MG/3 ML Neb Soln NEB SCH ×4 (05:43→20:48)
[2022-01-26] MEDS: Labetalol 100 MG Tab PO SCH ×2 (08:42→20:15)
[2022-01-26] MEDS: Tamsulosin 0.4 MG Cap.ER PO SCH ×2 (08:43→20:15)
[2022-01-26] MEDS: Furosemide 20 MG Tab PO SCH (08:44)
[2022-01-26] MEDS: Losartan 100 MG Tab PO SCH (08:44)
[2022-01-26] MEDS: Cholecalciferol (Vitamin D3) 25 MCG Tab PO SCH (08:44)
[2022-01-26] MEDS: Memantine 10 MG Tab PO SCH ×2 (08:45→20:15)
[2022-01-26] MEDS: Finasteride 5 MG Tab PO SCH (08:45)
[2022-01-26] MEDS: amLODIPine 2.5 MG Tab PO SCH (08:45)
[2022-01-26] MEDS: Acetaminophen 325 MG Tab PO PRN ×2 (08:46→20:14)
[2022-01-26] MEDS: Timolol Maleate 0.5% Ophth Soln 5 ML Bottle EYEBOTH SCH ×2 (08:52→20:16)
[2022-01-26] MEDS: Azithromycin 500 MG in Sodium Chloride 0.9% 250 ML IV SCH (11:06)
[2022-01-26] MEDS: cefTRIAXone 2 GM in Sodium Chloride 0.9% 100 ML IV SCH (12:16)
[2022-01-26] MEDS: Latanoprost 0.005% Ophth Soln 2.5 ML Bottle EYEBOTH SCH (20:16)
[2022-01-26] MEDS: OLANZapine 5 MG Tab PO SCH (20:16)
[2022-01-27] MEDS: traMADol 50 MG Tab PO PRN ×4 (03:46→20:41)
[2022-01-27] MEDS: Albuterol/Ipratropium 3.0-0.5 MG/3 ML Neb Soln NEB SCH ×4 (06:06→21:08)
[2022-01-27] MEDS: Levothyroxine 100 MCG Tab PO SCH (06:23)
[2022-01-27] MEDS: Heparin Sodium 5,000 Units/ML Vial SUBCUT SCH ×3 (06:23→20:42)
[2022-01-27] MEDS: Cholecalciferol (Vitamin D3) 25 MCG Tab PO SCH (08:14)
[2022-01-27] MEDS: Finasteride 5 MG Tab PO SCH (08:14)
[2022-01-27] MEDS: Tamsulosin 0.4 MG Cap.ER PO SCH ×2 (08:14→20:41)
[2022-01-27] MEDS: Furosemide 20 MG Tab PO SCH (08:14)
[2022-01-27] MEDS: Memantine 10 MG Tab PO SCH ×2 (08:14→20:40)
[2022-01-27] MEDS: amLODIPine 2.5 MG Tab PO SCH (08:17)
[2022-01-27] MEDS: Timolol Maleate 0.5% Ophth Soln 5 ML Bottle EYEBOTH SCH ×2 (08:17→20:38)
[2022-01-27] MEDS: Losartan 100 MG Tab PO SCH (08:17)
[2022-01-27] MEDS: Acetaminophen 325 MG Tab PO PRN (08:18)
[2022-01-27] MEDS: Labetalol 100 MG Tab PO SCH ×2 (08:18→20:39)
[2022-01-27] MEDS: Azithromycin 500 MG in Sodium Chloride 0.9% 250 ML IV SCH (10:25)
[2022-01-27] MEDS: cefTRIAXone 2 GM in Sodium Chloride 0.9% 100 ML IV SCH (11:31)
[2022-01-27] MEDS: Latanoprost 0.005% Ophth Soln 2.5 ML Bottle EYEBOTH SCH (20:38)
[2022-01-27] MEDS: OLANZapine 5 MG Tab PO SCH (20:41)
[2022-01-28] MEDS: Heparin Sodium 5,000 Units/ML Vial SUBCUT SCH ×3 (05:18→20:32)
[2022-01-28] MEDS: Levothyroxine 100 MCG Tab PO SCH (05:19)
[2022-01-28] MEDS: Albuterol/Ipratropium 3.0-0.5 MG/3 ML Neb Soln NEB SCH ×4 (07:06→20:53)
[2022-01-28] MEDS: Losartan 100 MG Tab PO SCH (08:55)
[2022-01-28] MEDS: amLODIPine 2.5 MG Tab PO SCH (08:56)
[2022-01-28] MEDS: Memantine 10 MG Tab PO SCH ×2 (08:56→20:30)
[2022-01-28] MEDS: Tamsulosin 0.4 MG Cap.ER PO SCH ×2 (08:56→20:30)
[2022-01-28] MEDS: Finasteride 5 MG Tab PO SCH (08:56)
[2022-01-28] MEDS: Furosemide 20 MG Tab PO SCH (08:57)
[2022-01-28] MEDS: Cholecalciferol (Vitamin D3) 25 MCG Tab PO SCH (08:57)
[2022-01-28] MEDS: Labetalol 100 MG Tab PO SCH ×2 (08:57→20:31)
[2022-01-28] MEDS: Timolol Maleate 0.5% Ophth Soln 5 ML Bottle EYEBOTH SCH ×2 (08:58→20:32)
[2022-01-28] MEDS: Acetaminophen 325 MG Tab PO PRN ×2 (10:51→20:30)
[2022-01-28] MEDS: traMADol 50 MG Tab PO PRN ×2 (10:51→20:29)
[2022-01-28] MEDS: cefTRIAXone 2 GM in Sodium Chloride 0.9% 100 ML IV SCH (12:33)
[2022-01-28] MEDS: Latanoprost 0.005% Ophth Soln 2.5 ML Bottle EYEBOTH SCH (20:32)
[2022-01-28] MEDS ORDERED: traZODone 50 MG Tab PO ONE (22:05)
[2022-01-28] MEDS: Temazepam 7.5 MG Cap PO PRN (22:31)
[2022-01-28] MEDS: Docusate Sodium 100 MG Cap PO PRN (23:06)
[2022-01-29] MEDS: traMADol 50 MG Tab PO PRN ×4 (00:58→19:52)
[2022-01-29] MEDS: Heparin Sodium 5,000 Units/ML Vial SUBCUT SCH ×5 (04:16→20:31)
[2022-01-29] MEDS: Levothyroxine 100 MCG Tab PO SCH (05:37)
[2022-01-29] MEDS: Docusate Sodium 100 MG Cap PO PRN (05:46)
[2022-01-29] MEDS: Albuterol/Ipratropium 3.0-0.5 MG/3 ML Neb Soln NEB SCH ×4 (06:12→20:42)
[2022-01-29] MEDS: Finasteride 5 MG Tab PO SCH (08:06)
[2022-01-29] MEDS: Labetalol 100 MG Tab PO SCH ×3 (08:06→20:30)
[2022-01-29] MEDS: Tamsulosin 0.4 MG Cap.ER PO SCH ×2 (08:06→20:00)
[2022-01-29] MEDS: Furosemide 20 MG Tab PO SCH (08:07)
[2022-01-29] MEDS: Cholecalciferol (Vitamin D3) 25 MCG Tab PO SCH (08:07)
[2022-01-29] MEDS: Memantine 10 MG Tab PO SCH ×2 (08:07→20:00)
[2022-01-29] MEDS: amLODIPine 2.5 MG Tab PO SCH (08:07)
[2022-01-29] MEDS: Timolol Maleate 0.5% Ophth Soln 5 ML Bottle EYEBOTH SCH ×2 (08:08→20:31)
[2022-01-29] MEDS: Losartan 100 MG Tab PO SCH (08:08)
[2022-01-29] MEDS: Acetaminophen 325 MG Tab PO PRN ×2 (09:06→14:29)
[2022-01-29] MEDS: cefTRIAXone 2 GM in Sodium Chloride 0.9% 100 ML IV SCH (13:15)
[2022-01-29] MEDS ORDERED: Bisacodyl 10 MG Supp RECTAL ONE (13:30)
[2022-01-29] MEDS: Temazepam 7.5 MG Cap PO PRN (20:15)
[2022-01-29] MEDS: Latanoprost 0.005% Ophth Soln 2.5 ML Bottle EYEBOTH SCH (20:31)
[2022-01-29] MEDS ORDERED: Haloperidol Lactate 5 MG/ML SDV IVPUSH ONE (21:00)
[2022-01-30] MEDS: Albuterol/Ipratropium 3.0-0.5 MG/3 ML Neb Soln NEB SCH ×4 (05:40→20:48)
[2022-01-30] MEDS: Heparin Sodium 5,000 Units/ML Vial SUBCUT SCH ×3 (06:27→20:25)
[2022-01-30] MEDS: Levothyroxine 100 MCG Tab PO SCH (06:29)
[2022-01-30] MEDS: Timolol Maleate 0.5% Ophth Soln 5 ML Bottle EYEBOTH SCH ×2 (08:03→20:30)
[2022-01-30] MEDS: Finasteride 5 MG Tab PO SCH (08:14)
[2022-01-30] MEDS: amLODIPine 2.5 MG Tab PO SCH (08:14)
[2022-01-30] MEDS: Furosemide 20 MG Tab PO SCH (08:14)
[2022-01-30] MEDS: Memantine 10 MG Tab PO SCH ×2 (08:15→20:20)
[2022-01-30] MEDS: Cholecalciferol (Vitamin D3) 25 MCG Tab PO SCH (08:15)
[2022-01-30] MEDS: Labetalol 100 MG Tab PO SCH ×2 (08:15→20:16)
[2022-01-30] MEDS: Losartan 100 MG Tab PO SCH (08:15)
[2022-01-30] MEDS: Tamsulosin 0.4 MG Cap.ER PO SCH ×2 (08:20→20:20)
[2022-01-30] MEDS ORDERED: Furosemide 40 MG/4 ML VIAL IVPUSH ONE (08:37)
[2022-01-30] MEDS: cefTRIAXone 2 GM in Sodium Chloride 0.9% 100 ML IV SCH (12:00)
[2022-01-30] MEDS: traMADol 50 MG Tab PO PRN ×2 (14:29→20:20)
[2022-01-30] MEDS ORDERED: Haloperidol Lactate 5 MG/ML SDV IVPUSH ONE (20:19)
[2022-01-30] MEDS: Temazepam 7.5 MG Cap PO PRN (20:20)
[2022-01-30] MEDS: Latanoprost 0.005% Ophth Soln 2.5 ML Bottle EYEBOTH SCH (20:35)
[2022-01-31] MEDS: Heparin Sodium 5,000 Units/ML Vial SUBCUT SCH ×4 (03:52→20:51)
[2022-01-31] MEDS: Levothyroxine 100 MCG Tab PO SCH ×2 (04:33→06:52)
[2022-01-31] MEDS: Albuterol/Ipratropium 3.0-0.5 MG/3 ML Neb Soln NEB SCH ×4 (05:42→21:04)
[2022-01-31] MEDS: amLODIPine 2.5 MG Tab PO SCH (09:11)
[2022-01-31] MEDS: Timolol Maleate 0.5% Ophth Soln 5 ML Bottle EYEBOTH SCH ×2 (09:11→20:54)
[2022-01-31] MEDS: Finasteride 5 MG Tab PO SCH (09:12)
[2022-01-31] MEDS: Furosemide 20 MG Tab PO SCH (09:12)
[2022-01-31] MEDS: Losartan 100 MG Tab PO SCH (09:13)
[2022-01-31] MEDS: Memantine 10 MG Tab PO SCH ×2 (09:14→20:51)
[2022-01-31] MEDS: Tamsulosin 0.4 MG Cap.ER PO SCH ×2 (09:14→20:46)
[2022-01-31] MEDS: Cholecalciferol (Vitamin D3) 25 MCG Tab PO SCH (09:14)
[2022-01-31] MEDS: Labetalol 100 MG Tab PO SCH ×2 (09:15→20:46)
[2022-01-31] MEDS: Acetaminophen 325 MG Tab PO PRN ×2 (09:16→17:29)
[2022-01-31] MEDS ORDERED: Furosemide 40 MG/4 ML VIAL IVPUSH ONE ×2 (09:52→13:00)
[2022-01-31] MEDS: cefTRIAXone 2 GM in Sodium Chloride 0.9% 100 ML IV SCH (12:25)
[2022-01-31] MEDS: Latanoprost 0.005% Ophth Soln 2.5 ML Bottle EYEBOTH SCH (20:55)
[2022-01-31] MEDS ORDERED: Haloperidol Lactate 5 MG/ML SDV IVPUSH ONE (21:00)
[2022-02-01] MEDS: Levothyroxine 100 MCG Tab PO SCH (05:45)
[2022-02-01] MEDS: Heparin Sodium 5,000 Units/ML Vial SUBCUT SCH ×3 (05:45→21:54)
[2022-02-01] MEDS: Albuterol/Ipratropium 3.0-0.5 MG/3 ML Neb Soln NEB SCH ×4 (05:49→20:39)
[2022-02-01] MEDS: Acetaminophen 325 MG Tab PO PRN (08:11)
[2022-02-01] MEDS: Docusate Sodium 100 MG Cap PO PRN (08:14)
[2022-02-01] MEDS: Labetalol 100 MG Tab PO SCH ×2 (08:15→21:55)
[2022-02-01] MEDS: Losartan 100 MG Tab PO SCH (08:17)
[2022-02-01] MEDS: amLODIPine 2.5 MG Tab PO SCH (08:18)
[2022-02-01] MEDS: Tamsulosin 0.4 MG Cap.ER PO SCH ×2 (08:18→21:54)
[2022-02-01] MEDS: Memantine 10 MG Tab PO SCH ×2 (08:20→22:05)
[2022-02-01] MEDS: Timolol Maleate 0.5% Ophth Soln 5 ML Bottle EYEBOTH SCH ×2 (08:21→22:04)
[2022-02-01] MEDS: Furosemide 20 MG Tab PO SCH (08:21)
[2022-02-01] MEDS: Finasteride 5 MG Tab PO SCH (08:21)
[2022-02-01] MEDS: Cholecalciferol (Vitamin D3) 25 MCG Tab PO SCH (08:21)
[2022-02-01] MEDS: cefTRIAXone 2 GM in Sodium Chloride 0.9% 100 ML IV SCH (12:21)
[2022-02-01] MEDS: traMADol 50 MG Tab PO PRN (13:01)
[2022-02-01] MEDS: Temazepam 7.5 MG Cap PO PRN (21:54)
[2022-02-01] MEDS: Latanoprost 0.005% Ophth Soln 2.5 ML Bottle EYEBOTH SCH (22:04)
[2022-02-01] MEDS: Haloperidol 0.5 MG Tab PO SCH (22:05)
[2022-02-02] MEDS: Levothyroxine 100 MCG Tab PO SCH (05:52)
[2022-02-02] MEDS: Heparin Sodium 5,000 Units/ML Vial SUBCUT SCH ×3 (05:52→21:24)
[2022-02-02] MEDS: Albuterol/Ipratropium 3.0-0.5 MG/3 ML Neb Soln NEB SCH ×4 (06:24→21:49)
[2022-02-02] MEDS: Timolol Maleate 0.5% Ophth Soln 5 ML Bottle EYEBOTH SCH ×2 (09:20→21:25)
[2022-02-02] MEDS: traMADol 50 MG Tab PO PRN (09:22)
[2022-02-02] MEDS: Tamsulosin 0.4 MG Cap.ER PO SCH ×2 (09:26→21:24)
[2022-02-02] MEDS: Labetalol 100 MG Tab PO SCH ×2 (09:28→21:24)
[2022-02-02] MEDS: Furosemide 20 MG Tab PO SCH (09:29)
[2022-02-02] MEDS: Finasteride 5 MG Tab PO SCH (09:29)
[2022-02-02] MEDS: Memantine 10 MG Tab PO SCH ×2 (09:29→21:24)
[2022-02-02] MEDS: amLODIPine 2.5 MG Tab PO SCH (09:29)
[2022-02-02] MEDS: Cholecalciferol (Vitamin D3) 25 MCG Tab PO SCH (09:30)
[2022-02-02] MEDS: Losartan 100 MG Tab PO SCH (09:30)
[2022-02-02] MEDS: cefTRIAXone 2 GM in Sodium Chloride 0.9% 100 ML IV SCH (12:45)
[2022-02-02] MEDS: Haloperidol 0.5 MG Tab PO SCH (21:23)
[2022-02-02] MEDS: Latanoprost 0.005% Ophth Soln 2.5 ML Bottle EYEBOTH SCH (21:25)
[2022-02-03] MEDS: Heparin Sodium 5,000 Units/ML Vial SUBCUT SCH ×3 (04:50→21:52)
[2022-02-03] MEDS: Albuterol/Ipratropium 3.0-0.5 MG/3 ML Neb Soln NEB SCH ×4 (05:27→20:02)
[2022-02-03] MEDS: Levothyroxine 100 MCG Tab PO SCH (07:32)
[2022-02-03] MEDS: Timolol Maleate 0.5% Ophth Soln 5 ML Bottle EYEBOTH SCH ×3 (09:12→21:52)
[2022-02-03] MEDS ORDERED: Sodium Chloride 0.9% 250 ML IV SCH (09:45)
[2022-02-03] MEDS: Potassium Chloride 10 MEQ in Premix Bag 1 BAG IV SCH ×2 (10:15→11:34)
[2022-02-03] MEDS: hydrALAZINE 20 MG/ML SDV IVPUSH SCH ×2 (11:14→13:14)
[2022-02-03] MEDS: Memantine 10 MG Tab PO SCH ×2 (11:38→21:55)
[2022-02-03] MEDS: Labetalol 100 MG Tab PO SCH ×2 (11:38→21:52)
[2022-02-03] MEDS: Furosemide 20 MG Tab PO SCH (11:38)
[2022-02-03] MEDS: Losartan 100 MG Tab PO SCH (11:38)
[2022-02-03] MEDS: Tamsulosin 0.4 MG Cap.ER PO SCH ×2 (11:38→21:54)
[2022-02-03] MEDS: Cholecalciferol (Vitamin D3) 25 MCG Tab PO SCH (11:39)
[2022-02-03] MEDS: Finasteride 5 MG Tab PO SCH (11:39)
[2022-02-03] MEDS: amLODIPine 2.5 MG Tab PO SCH (11:39)
[2022-02-03] MEDS: cefTRIAXone 2 GM in Sodium Chloride 0.9% 100 ML IV SCH (12:43)
[2022-02-03] MEDS: Acetaminophen 325 MG Tab PO PRN (13:48)
[2022-02-03] MEDS: traMADol 50 MG Tab PO PRN (13:48)
[2022-02-03] MEDS ORDERED: Haloperidol 0.5 MG Tab PO SCH (21:00)
[2022-02-03] MEDS: Latanoprost 0.005% Ophth Soln 2.5 ML Bottle EYEBOTH SCH (21:51)
[2022-02-04] MEDS: Albuterol/Ipratropium 3.0-0.5 MG/3 ML Neb Soln NEB SCH ×4 (06:07→20:22)
[2022-02-04] MEDS: Docusate Sodium 100 MG Cap PO PRN (06:38)
[2022-02-04] MEDS: Levothyroxine 100 MCG Tab PO SCH (06:38)
[2022-02-04] MEDS: Heparin Sodium 5,000 Units/ML Vial SUBCUT SCH ×2 (06:38→14:06)
[2022-02-04] MEDS: Furosemide 20 MG Tab PO SCH (08:50)
[2022-02-04] MEDS: Memantine 10 MG Tab PO SCH ×3 (08:55→20:08)
[2022-02-04] MEDS: amLODIPine 2.5 MG Tab PO SCH ×2 (08:55→10:25)
[2022-02-04] MEDS: Losartan 100 MG Tab PO SCH (08:55)
[2022-02-04] MEDS: Labetalol 100 MG Tab PO SCH ×2 (08:55→20:08)
[2022-02-04] MEDS: Tamsulosin 0.4 MG Cap.ER PO SCH ×3 (08:55→20:22)
[2022-02-04] MEDS: Cholecalciferol (Vitamin D3) 25 MCG Tab PO SCH ×2 (08:56→10:25)
[2022-02-04] MEDS: Timolol Maleate 0.5% Ophth Soln 5 ML Bottle EYEBOTH SCH ×3 (08:56→20:07)
[2022-02-04] MEDS: Finasteride 5 MG Tab PO SCH ×2 (08:56→10:26)
[2022-02-04] MEDS: traMADol 50 MG Tab PO PRN (14:52)
[2022-02-04] MEDS: Latanoprost 0.005% Ophth Soln 2.5 ML Bottle EYEBOTH SCH (20:07)
[2022-02-04] MEDS: QUEtiapine 25 MG Tab PO SCH (20:08)
[2022-02-04] MEDS ORDERED: Haloperidol 0.5 MG Tab PO SCH (21:00)
[2022-02-05] MEDS ORDERED: Bisacodyl 10 MG Supp RECTAL ONE (05:22)
[2022-02-05] MEDS: Levothyroxine 100 MCG Tab PO SCH (05:32)
[2022-02-05] MEDS: Albuterol/Ipratropium 3.0-0.5 MG/3 ML Neb Soln NEB SCH (06:14)
[2022-02-05] MEDS: Labetalol 100 MG Tab PO SCH ×2 (09:12→20:03)
[2022-02-05] MEDS: Memantine 10 MG Tab PO SCH ×2 (09:13→20:01)
[2022-02-05] MEDS: Finasteride 5 MG Tab PO SCH (09:13)
[2022-02-05] MEDS: Tamsulosin 0.4 MG Cap.ER PO SCH ×2 (09:13→20:03)
[2022-02-05] MEDS ORDERED: Albuterol/Ipratropium 3.0-0.5 MG/3 ML Neb Soln NEB PRN (09:21)
[2022-02-05] MEDS: Timolol Maleate 0.5% Ophth Soln 5 ML Bottle EYEBOTH SCH ×2 (09:22→20:50)
[2022-02-05] MEDS: QUEtiapine 25 MG Tab PO SCH (20:01)
[2022-02-05] MEDS: Latanoprost 0.005% Ophth Soln 2.5 ML Bottle EYEBOTH SCH (20:50)
[2022-02-06] MEDS: Levothyroxine 100 MCG Tab PO SCH ×2 (05:33→05:45)
[2022-02-06] MEDS: Tamsulosin 0.4 MG Cap.ER PO SCH ×2 (09:13→20:08)
[2022-02-06] MEDS: Memantine 10 MG Tab PO SCH ×2 (09:13→20:08)
[2022-02-06] MEDS: Finasteride 5 MG Tab PO SCH (09:13)
[2022-02-06] MEDS: Labetalol 100 MG Tab PO SCH ×2 (09:13→20:07)
[2022-02-06] MEDS: Timolol Maleate 0.5% Ophth Soln 5 ML Bottle EYEBOTH SCH ×2 (09:14→20:07)
[2022-02-06] MEDS: traMADol 50 MG Tab PO PRN ×2 (12:42→20:12)
[2022-02-06] MEDS: Latanoprost 0.005% Ophth Soln 2.5 ML Bottle EYEBOTH SCH (20:06)
[2022-02-06] MEDS: QUEtiapine 25 MG Tab PO SCH (20:07)
[2022-02-07] MEDS: Levothyroxine 100 MCG Tab PO SCH (05:08)
[2022-02-07] MEDS: Memantine 10 MG Tab PO SCH ×2 (08:14→22:05)
[2022-02-07] MEDS: Tamsulosin 0.4 MG Cap.ER PO SCH ×2 (08:14→22:05)
[2022-02-07] MEDS: Labetalol 100 MG Tab PO SCH ×2 (08:15→22:04)
[2022-02-07] MEDS: traMADol 50 MG Tab PO PRN (08:15)
[2022-02-07] MEDS: Finasteride 5 MG Tab PO SCH (08:15)
[2022-02-07] MEDS: Timolol Maleate 0.5% Ophth Soln 5 ML Bottle EYEBOTH SCH ×2 (08:19→22:07)
[2022-02-07] MEDS: QUEtiapine 25 MG Tab PO SCH (22:04)
[2022-02-07] MEDS: Lactoperoxi/Gluc Oxid/Pot Thio 42 GM Tube MUCMEM PRN (22:07)
[2022-02-07] MEDS: Latanoprost 0.005% Ophth Soln 2.5 ML Bottle EYEBOTH SCH (22:08)
[2022-02-08] MEDS: Levothyroxine 100 MCG Tab PO SCH (06:03)
[2022-02-08] MEDS ORDERED: Magnesium Hydroxide 400 MG/5 ML Susp 30 ML Cup PO ONE (07:27)
[2022-02-08] MEDS: Labetalol 100 MG Tab PO SCH ×2 (08:22→21:19)
[2022-02-08] MEDS: Timolol Maleate 0.5% Ophth Soln 5 ML Bottle EYEBOTH SCH ×2 (08:23→21:21)
[2022-02-08] MEDS: Tamsulosin 0.4 MG Cap.ER PO SCH ×2 (08:23→21:19)
[2022-02-08] MEDS: Memantine 10 MG Tab PO SCH ×2 (08:23→21:20)
[2022-02-08] MEDS: Finasteride 5 MG Tab PO SCH (08:23)
[2022-02-08] MEDS: traMADol 50 MG Tab PO PRN ×2 (11:37→22:56)
[2022-02-08] MEDS: QUEtiapine 25 MG Tab PO SCH (21:19)
[2022-02-08] MEDS: Latanoprost 0.005% Ophth Soln 2.5 ML Bottle EYEBOTH SCH (21:23)
[2022-02-08] MEDS: Morphine 2 MG/ML SYRINGE IVPUSH PRN (23:05)
[2022-02-09] MEDS: Morphine 2 MG/ML SYRINGE IVPUSH PRN ×2 (02:38→12:35)
[2022-02-09] MEDS: Levothyroxine 100 MCG Tab PO SCH (05:34)
[2022-02-09] MEDS: Tamsulosin 0.4 MG Cap.ER PO SCH ×2 (09:07→21:23)
[2022-02-09] MEDS: Finasteride 5 MG Tab PO SCH (09:07)
[2022-02-09] MEDS: Memantine 10 MG Tab PO SCH ×2 (09:07→21:23)
[2022-02-09] MEDS: Timolol Maleate 0.5% Ophth Soln 5 ML Bottle EYEBOTH SCH ×2 (09:08→21:27)
[2022-02-09] MEDS: Labetalol 100 MG Tab PO SCH ×2 (09:08→21:22)
[2022-02-09] MEDS: QUEtiapine 25 MG Tab PO SCH (21:22)
[2022-02-09] MEDS: traMADol 50 MG Tab PO PRN (21:23)
[2022-02-09] MEDS: Latanoprost 0.005% Ophth Soln 2.5 ML Bottle EYEBOTH SCH (21:27)
[2022-02-09] MEDS: Docusate Sodium 100 MG Cap PO PRN (21:32)
[2022-02-10] MEDS: Morphine 2 MG/ML SYRINGE IVPUSH PRN ×2 (04:22→18:44)
[2022-02-10] MEDS: Levothyroxine 100 MCG Tab PO SCH (06:28)
[2022-02-10] MEDS: Timolol Maleate 0.5% Ophth Soln 5 ML Bottle EYEBOTH SCH ×2 (08:54→21:03)
[2022-02-10] MEDS: Labetalol 100 MG Tab PO SCH ×2 (08:54→21:02)
[2022-02-10] MEDS: Memantine 10 MG Tab PO SCH ×2 (08:59→21:02)
[2022-02-10] MEDS: Finasteride 5 MG Tab PO SCH (08:59)
[2022-02-10] MEDS: Tamsulosin 0.4 MG Cap.ER PO SCH ×2 (08:59→21:01)
[2022-02-10] MEDS ORDERED: LORazepam 2 MG/ML SDV IVPUSH PRN (19:06)
[2022-02-10] MEDS: Acetaminophen 325 MG Tab PO PRN (21:01)
[2022-02-10] MEDS: QUEtiapine 25 MG Tab PO SCH (21:01)
[2022-02-10] MEDS: Latanoprost 0.005% Ophth Soln 2.5 ML Bottle EYEBOTH SCH (21:03)
[2022-02-10] MEDS: Lactoperoxi/Gluc Oxid/Pot Thio 42 GM Tube MUCMEM PRN (21:05)
[2022-02-11] MEDS: Morphine 2 MG/ML SYRINGE IVPUSH PRN ×3 (05:47→17:35)
[2022-02-11] MEDS: Lactoperoxi/Gluc Oxid/Pot Thio 42 GM Tube MUCMEM PRN (05:50)
[2022-02-11] MEDS: Levothyroxine 100 MCG Tab PO SCH (05:50)
[2022-02-11] MEDS: Tamsulosin 0.4 MG Cap.ER PO SCH ×2 (11:52→20:25)
[2022-02-11] MEDS: Memantine 10 MG Tab PO SCH ×2 (11:53→20:25)
[2022-02-11] MEDS: Finasteride 5 MG Tab PO SCH (11:53)
[2022-02-11] MEDS: Timolol Maleate 0.5% Ophth Soln 5 ML Bottle EYEBOTH SCH ×2 (11:53→20:25)
[2022-02-11] MEDS: Labetalol 100 MG Tab PO SCH (11:53)
[2022-02-11] MEDS: QUEtiapine 25 MG Tab PO SCH (20:25)
[2022-02-11] MEDS: Latanoprost 0.005% Ophth Soln 2.5 ML Bottle EYEBOTH SCH (20:25)
[2022-02-12] MEDS: Morphine 2 MG/ML SYRINGE IVPUSH PRN ×3 (02:07→10:27)
[2022-02-12] MEDS: Levothyroxine 100 MCG Tab PO SCH (06:01)
[2022-02-12] MEDS: Tamsulosin 0.4 MG Cap.ER PO SCH (09:00)
[2022-02-12] MEDS: Timolol Maleate 0.5% Ophth Soln 5 ML Bottle EYEBOTH SCH (09:00)
[2022-02-12] MEDS: Finasteride 5 MG Tab PO SCH (09:00)
[2022-02-12] MEDS: Memantine 10 MG Tab PO SCH (09:00)
[2022-02-12] MEDS: Morphine 10 MG/0.5 ML Oral Syringe PO SCH ×2 (11:24→17:07)
[2022-02-12] MEDS: Morphine 10 MG/0.5 ML Oral Syringe PO PRN ×5 (15:58→23:03)
[2022-02-12] MEDS: LORazepam 1 MG Tab PO PRN (17:45)
[2022-02-12] MEDS: QUEtiapine 25 MG Tab PO SCH (21:00)
[2022-02-12] MEDS: Latanoprost 0.005% Ophth Soln 2.5 ML Bottle EYEBOTH SCH (21:00)
[2022-02-13] MEDS: Morphine 10 MG/0.5 ML Oral Syringe PO PRN ×3 (03:57→11:47)
[2022-02-13 08:35] VITALS: BP 139/77; PULSE 70
[2022-02-13] MEDS: LORazepam 1 MG Tab PO PRN (11:47)
== END 2022-02-13 12:10 | DRG 56 ==
LOC: JD.ED 08:50 → JD.MS 12:52
PROVIDERS: ADMIT Emergency Medicine; ATTEND Internal Medicine
DX: J18.9 Pneumonia, unspecified organism (principal); D64.89 Other specified anemias; G30.9 Alzheimer's disease, unspecified; R53.1 Weakness; Z88.8 Allergy status to other drugs, medicaments and biological substances; H40.9 Unspecified glaucoma; H35.30 Unspecified macular degeneration; I10 Essential (primary) hypertension; J96.01 Acute respiratory failure with hypoxia; K57.90 Diverticulosis of intestine, part unspecified, without perforation or abscess without bleeding; I12.9 Hypertensive chronic kidney disease with stage 1 through stage 4 chronic kidney disease, or unspecified chronic kidney disease; N18.9 Chronic kidney disease, unspecified; J69.0 Pneumonitis due to inhalation of food and vomit; R33.9 Retention of urine, unspecified; I13.0 Hypertensive heart and chronic kidney disease with heart failure and stage 1 through stage 4 chronic kidney disease, or unspecified chronic kidney disease; F02.81 Dementia in other diseases classified elsewhere, unspecified severity, with behavioral disturbance; D63.1 Anemia in chronic kidney disease; N18.32 Chronic kidney disease, stage 3b; Z51.5 Encounter for palliative care; N40.1 Benign prostatic hyperplasia with lower urinary tract symptoms; R33.8 Other retention of urine; Z66 Do not resuscitate; M54.9 Dorsalgia, unspecified; T43.595A Adverse effect of other antipsychotics and neuroleptics, initial encounter; E03.9 Hypothyroidism, unspecified; G47.30 Sleep apnea, unspecified; I50.9 Heart failure, unspecified; Z20.822 Contact with and (suspected) exposure to COVID-19; Z96.649 Presence of unspecified artificial hip joint; Z87.891 Personal history of nicotine dependence; Z95.0 Presence of cardiac pacemaker; Z88.1 Allergy status to other antibiotic agents; Z79.890 Hormone replacement therapy; Z79.899 Other long term (current) drug therapy; Z98.49 Cataract extraction status, unspecified eye
CPT/HCPCS: 0241U; 36415; 70450; 71045; 71250; 80053; 81001; 83605; 83735; 83880; 84484; 85025; 86140; 87040; 92526; 92610; 93005; 94640; 94668; 94760; 94761; 96365; 97110; 97116; 97162; 97530; 99285; 93010; A9270-GY; J0360; J0456; J0696; J1630; J1644; J1940; J2060; J2270; J3480; J3490; J7030; J7050; J7620-GY; Q3014; U0002